=== PATIENT | female | born 1980 | race Caucasian/White ===

== ENCOUNTER 2024-04-13 10:36 | Outpatient (AMB) | payer OTHER, SELFPAY ==
--- NOTE | 2024-04-13 11:13 | MHC.OFFVIS ---
Vital Signs 04/13/24 11:14 Height 5 ft 3 in Weight 185 lb 2 oz BMI 32.8 BP 126/66 Blood Pressure Location Lt brachial Position Sitting Pulse 88 Intake Visit Reasons: Colon rectal prolapse Intake Note: This patient presents for rectal prolapse. Pt c/o; Onset 2021, she reports this has been an issue since she had her daughter in 2021, she had childbirth but turned into emergency , reports rectal bleeding and mucus after a bowel movement, reports pressure sensation, reports she went to [facility] emergency department for Right upper quadrant pain; normal findings. Artificial Intelligence Specialist Required: No Accompanied by: Self / Same As Patient Allergies ketorolac [From Toradol] Allergy (Severe, Verified 04/13/24 11:18) Anaphylaxis metoclopramide [From Reglan] Allergy (Severe, Verified 04/13/24 11:18) Jumpy morphine Allergy (Severe, Verified 04/13/24 11:18) Anaphylaxis Medication List - Last Reconciled 04/13/24 by Anish Ribeiro MD clindamycin phosphate 1% 1 appl topical BID cyclobenzaprine 10 mg PO BID hydrocodone-acetaminophen 5-325 mg 1 tab PO BID PRN ibuprofen 800 mg PO Q8H -lzjr fum-folic ac-om3 28 mg iron- 800 mcg (One A Day Women's DHA) pkgs PO HPI HPI Colon rectal prolapse: Details: 44-year-old female here for hemorrhoid issues. She describes having hemorrhoids since she had her about 3 years ago. She says that at that time, her hemorrhoids were prolapse and she would pushes back in. She did not have severe problems with this then. However, for the past few months, she says that her hemorrhoids have been prolapsing more frequently and she has to push this back herself. She says that this would swell up and cause significant pain and bleeding. She denies being significant constipated. She denies having spontaneous vaginal delivery. [facility] Medical History (Updated 04/13/24 @ 11:20 by Anish Ribeiro MD) Hemorrhoids that prolapse with straining and require manual replacement back inside anal canal Endometriosis Surgical History H/O section Family History Maternal Grandmother CVA (cerebral vascular accident) Paternal Grandmother Colon cancer Paternal Grandfather Myocardial infarction Maternal Grandfather Heart valve replaced Social History Household Members: Spouse and Children Alcohol intake: never Patient Tobacco Use Status: Current someday Tobacco user Tobacco use type: Cigarette Years Smoked: 24 Use of substances other than those prescribed or required for medical reasons: No Review of Systems Const Denies chills and Denies fever(s) Card Denies chest pain, Denies dyspnea and Denies dyspnea on exertion Resp Denies cough, Denies dyspnea and Denies dyspnea on exertion GI Reports hematochezia and Denies change in bowel habits Denies hematuria Musc Denies back pain and Denies limited range of motion Neuro Denies focal weakness and Denies convulsions Psych Denies depression and Denies mood swings Physical Exam Vital Signs: Last Vital Signs Pulse 88 04/13/24 11:14 BP 126/66 04/13/24 11:14 BMI result Body Mass Index 32.8 Const General: comfortable and no acute distress Orientation/consciousness: patient oriented x3 Neck Neck: Yes no lymphadenopathy Resp Auscultation: clear to auscultation bilaterally Cardio Rhythm: regular rhythm GI Other: Rectal exam shows hemorrhoids on both the left and right side Palpation (GI): Soft to palpation, nontender and no guarding Neuro General: patient oriented x3 Office Procedures Anoscopy She was in brit-knife position. The anoscope was gently inserted. A full examination of the entire anal canal was done. She did have mixed internal external hemorrhoids, moderate sites on both the left right side. There were no other lesions. There was no fissure ulceration. She had good sphincter tone. There was no bleeding [id number] Assessment & Plan Assessment & Plan (1) Hemorrhoids that prolapse with straining and require manual replacement back inside anal canal: Code(s): K64.2 - Third degree hemorrhoids Category: Medical Plan: She describes significant discomfort with her hemorrhoids that prolapse frequently. She says she has frequent swelling and pain with this as well. She describes occasional bleeding seen with wiping Examination does show internal and external hemorrhoids, moderately sized. I therefore explained to her the option of proceeding with hemorrhoidectomy. I explained the technique of this procedure. I reviewed the risks including but not limited to bleeding, infections, postop pain, as well as the benefits and alternatives. I described to her what to expect postoperatively She understands and wants to proceed. Coding Level of Care Code New Pt Level 3 (42422) Diagnoses Hemorrhoids that prolapse with straining and require manual replacement back inside anal canal K64.2 CPT Codes Details - CPT: 31423-Lplnplpy ([id number])
[2024-04-13 11:14] VITALS: BP 126/66; PULSE 88; BMI 32.8
--- OUTSIDE RECORDS SUMMARY | 2024-04-13 12:41 | XMS_ITS | Data Portability ---
Author Organization [facility] Address [address] [place] [address] Care Team Providers Care Director Of Quality Improvement Name Role Phone DANA KAREN Referring Provider Assessment Encounter Date Assessment Date Assessment LastModified by Organization Details LastModified Time 10/25/2023 10/25/2023 Reviewed history. Unusual to have recurrent endometriosis. Discussed strategy for preventing symptoms and potential recurrence, deferred due to patient's desire for fertility. Discussed medical management, concerned about narcotic use. Emphasised primary ibuprofen and acetaminophen use, and strict limitation with hydrocodone. Patient states current prescription usually cover 2 cycles. Continue PNV. Return 6 months for annual, sooner if positive test. Reviewing patient? s previous provider about the patient? s condition: 3 minutes Reviewing the patient? s history: 10 minutes Examining the patient: 1 minute Discussing the clinical scenario and treatment options with the patient: 8 minutes Writing prescriptions for the patient: 2 minutes Updating the patient? s record: 10 minutes [email or web address] Not available 10/28/2023 15:26:37 Plan of Treatment Reminders Order Date Submit Date Provider Last Modified By Organization Details Last Modified Time Details Appointments Return [facility] 2025 09:00A M Venancio Zaragoza MD Not available Not available Not available Lab None recorded. Referral None recorded. Procedures None recorded. Surgeries None recorded. Imaging None recorded. Medication Orders ibuprofen 800 mg tablet 2023 024 [facility], [address] [place], [address], 10/28/2023 15:09:54 acetamino phen 500 mg tablet 2023 024 [facility], [address] [place], [address], 10/28/2023 15:09:53 hydrocodo ne 5 mg-acetam inophen 325 mg tablet 2023 [facility], [address] [place], [address], 10/28/2023 15:09:55 ondansetr on HCl 4 mg tablet 2023 [facility], [address] [place], [address], 10/28/2023 15:09:54 Patient TargetsNo targets recorded. Patient Instructions Encounter Date Encounter Id Patient Instructions Last Modified By Organization Details Last Modified Time 10/25/2023 [id number] chronic pelvic pain: care instructions [email or web address] Not available 10/28/2023 15:09:50 body mass index: care instructions wbrazer Not available 10/28/2023 15:09:49 learning about healthy weight wbrazer Not available 10/28/2023 15:09:49 Reason for Referral None Reported. Procedures Surgical History Date Name Laterality Status Provider Name and Address Organization Details Recorded Time Dilation and Curettage completed [facility] 10/25/2023 14:16:14 Endometrial Ablation completed [facility] 10/25/2023 14:16:14 Gallbladder Surgery completed [facility] 10/25/2023 14:16:14 appendectomy completed [facility] 10/25/2023 14:16:14 Section completed [facility] 10/25/2023 14:16:14 Imaging Results None recorded. Procedure Notes None recorded. Medical Equipment None Reported. Allergies Allergen ID Allergen Name Allergen Category Reaction Reaction Severity Criticality Documentation Date Start Date Code Code System Note Provider Name and Address Organization Details Recorded Time 357837 morphine medicatio n anaphylax is Not available Not available 10/25/2023 7052 RxNorm [facility] 14:16:13 943155 POLL[facility] [employer] environme nt,medica tion other Not available Not available 10/25/2023 74670 6 RxNorm Taina ewing [facility] 4 14:16:13 Medications Name Sig Start Date Stop Date Status Note LastModified by Organization Details LastModified Time cyclobenzap rine 10 mg tablet TAKE 1 TABLET BY MOUTH TWICE DAILY FOR 90 DAY(S) NEEDED active Not Available Not Available No t Available ibuprofen 800 mg tablet TAKE 1 TABLET BY MOUTH FOUR TIMES A DAY NEEDED FOR MENSTRUAL PAIN active Not Available Not Available No t Available hydrocodone 5 mg-acetamin ophen 325 mg tablet TAKE 1 TABLET EVERY 4 HOURS BY ORAL ROUTE NEEDED FOR 30 DAYS, FOR MENSTRUAL PAIN. active Not Available Not Available No t Available ondansetron HCl 4 mg tablet TAKE 1 TABLET BY MOUTH 4 TIMES A DAY NEEDED FOR MENSTRUAL SYMPTOMS active Not Available Not Available No t Available acetaminoph en 500 mg tablet TAKE 1 TABLET BY MOUTH EVERY 6 HOURS FOR MENSTRUAL PAIN active Not Available Not Available No t Available oxycodone-a cetaminophe n 5 mg-325 mg tablet TAKE 1 TABLET BY MOUTH EVERY EVENING FOR 8 DAYS. 04/08 completed Not Available Not Available Not Available clindamycin 1 % topical gel APPLY 1 GRAMS PER 100 CENTIM TOP 2X / DAY FOR 10 DAY(S) active Not Available Not Available No t Available diclofenac sodium 50 mg tablet,kia yed release TAKE 1 TABLET BY MOUTH TWICE A DAY 04/08 completed Not Available Not Available Not Available ondansetron 4 mg disintegrat ing tablet active Not Available Not Available N ot Available oxycodone 5 mg tablet TAKE 1 TABLET BY MOUTH EVERY 6 HOURS NEEDED FOR BREAKTHRO UGH PAIN FOR UP TO 3 DAYS 10/20 completed Not Available Not Available Not Available Vitals Date Recorded Body height Body mass index (BMI) Body weight Systolic blood pressure Diastolic blood pressure Provider Name and Address Organization Details Last Updated DateTime 10/25/2023 157.48 cm 32.6 kg/m2 94402.24 g 149 mm[Hg] 90 mm[Hg] Taina Blandon [facility] 4 14:21:25 Date Recorded Body height Body mass index (BMI) Body weight Systolic blood pressure Diastolic blood pressure Provider Name and Address Organization Details Last Updated DateTime 04/12/2024 157.48 cm 33.5 kg/m2 97688.5 g 132 mm[Hg] 86 mm[Hg] [facility] 14:41:03 Social History Question Answer Notes LastModified by Organizat ion Details LastModified Time Tobacco Smoking Status Current Some Day Smoker [facility] 10/25/2023 14:16:14 Do You Have An Advance Directive? Yes Information not available 10/25/2023 Are You Blind Or Do You Have Difficulty Seeing? No Information not available 10/25/2023 Is Blood Transfusion Acceptable In An Emergency? Yes Information not available 10/25/2023 What Is Your Level Of Caffeine Consumption? Occasional Information not available 10/25/2023 Are You Currently Employed? No Information not available 04/12/2024 Are You Deaf Or Do You Have Serious Difficulty Hearing? No Information not available 10/25/2023 What Type Of Diet Are You Following? 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 Right Information not available 10/25/2023 What Was The Date Of Your Most Recent Tobacco Screening? 10/25/2023 Information not available 10/25/2023 Do You Have Any Pets? Yes Information not available 10/25/2023 What Is Your Relationship Status? Information not available 10/25/2023 Do You Feel Stressed (tense, Restless, Nervous, Or Anxious, Or Unable To Sleep At Night)? [id number] Information not available 10/25/2023 Do You Use Any Illicit Or Recreational Drugs? No Information not available 10/25/2023 Has Tobacco Cessation Counseling Been Provided? Yes Information not available 10/25/2023 On What Date Was Tobacco Cessation Counseling Provided? 10/25/2023 Information not available 10/25/2023 How Many Years Have You Smoked Tobacco? 21 Information not available 10/25/2023 Do You Or Have You Ever Used Any Other Forms Of Tobacco Or Nicotine? No Information not available 10/25/2023 Sex: Unknown Functional Status Question Answer Note LastModified by Organization D etails LastModified Time Are you able to care for yourself? Yes Information not available 10/25/2023 What is your exercise level? Moderate Information not available 10/25/2023 Mental Status None recorded. Family History Relationship Description Onset Age of this Age Resolved Age Notes LastModified by Organization Details LastModified Time Paternal Grandmother Malignant tumor of colon Not available 2023 14:16:13 Mother Migraine Not availabl e 10/25/2023 14:16:13 Maternal Grandmother Family history of stroke Not available 2023 14:16:13 Paternal Grandfather Myocardial infarction Not available 10/24 14:16:13 Medical History Condition Response Endometriosis Y Anxiety Y Gynecological History Statement/Question Response Total # of Births 1 Number of Pregnancies? 2 Date of LMP 03/25/2024 History of Abnormal Pap Smear? N Number of Abortions 0 Date of last pap 04/08/2023 Current Control Method Seeking Pre gnancy Number of Miscarriages? 1 Obstetrics History GPAL:G 0 P 0 0 0 0 Past Encounters Encounter ID Performer Location Encounter Start Date Encounter Closed Date Diagnosis/Indication Diagnosis SNOMED-CT Code Diagnosis ICD10 Code Diagnosis Note [id number] Venancio Zaragoza MD [facility] [address] [place] [address] 10/25/2023 13:53:47 10/25/2023 15:16:27 History of endometriosis 0649901774 4061748 Z87.42 Chronic pe lvic pain of female 004808920 R10.2 Body mass index 30+ - obesity 538138359 Z68.32 [id number] Kailee Voracod [facility] [address] [place] [address] 04/12/2024 14:02:14 04/12/2024 15:15:39 Routine gynecologic examination done 6033204527 9101 Z01.419 Screening for malignant neoplasm of breast 500872100 Z12.39 Health Concerns Section Related Observation LastModified by Organization Detai ls LastModified Time None Recorded Concern Status LastModified by Organization Details LastModified Time None Recorded Advance Directives Directive Y: Payers Encounter Date Sequence Insurance Name Policy Number Policy Gaston Covered Member ID Gaston Member ID Guarantor Name 10/25/2023 1 [facility] [id number] Laura Davidson [id number] Laura Davidson Notes Date Note Type Note Provider Name and Address Organization Details Recorded Time 10/25/2023 text/html New patient presents for discussion of endometriosis and medical management. Followed by Dr Vasquez for 20 years. Per patient has had 5 laparoscopic surgeries for endometriosis. 1st surgery 2001 Usually by several years, initially symptoms improved but over time returned. Per patient new endometriosis noted and burned or removed. Most recent surgery operative laparoscopy with D&C. Multiple spots of clear and white endometriosis noted and cauterized. D&C curettings noted inactive endometrium with chronic endometritis.Patien t used depo provera through 2022, stopped due to desire for fertility. Menses overall normal, regular, but painful. 10 days of bleeding. Menses: > > > 09/23. Uses motrin throughout, supplemented with acetaminophen-hydro codone and ondansetron. Would consider hysterectomy in future after fertility.Also experiences painful bowel movements.Medical history also includes fibromyalgia and spine issues due to 2 bulging disks. Was involved in pain clinic previously, but discontinued, felt was ineffective. Venancio Zaragoza MD [address] [place] [address], [phone], [facility] 10/28/2023 15:26:51 OBGyn Episode No OBEpisode recorded.
--- OUTSIDE RECORDS SUMMARY | 2024-04-13 12:41 | XMS_ITS | Data Portability ---
Author Organization [facility] Address [address] [place] [address] Care Team Providers Care Blanking Press Operator Name Role Phone ANNE ATKINS Referring Provider Assessment Encounter Date Assessment Date Assessment LastModified by Organization Details LastModified Time 01/05/2017 01/05/2017 Custom Device: Is a custom device needed for this patient? NO Reasons for Custom Device: Explain Reasoning: The patient will be seen on an as needed basis. Orthosis: is in stock and delivered today. Device delivered: Prefab, OTS If Prefab, Custom Fit, explain modifications - what was done and why: If Custom device, state reasons and provide narrative: Explain Reasoning: Orthotic Goals: Choose all that apply Provide Support Reduce Pain Improve Stability Promote Healing Other (please specify): melissa Not available 01/05/2017 14:03:17 Plan of Treatment Reminders Order Date Submit Date Provider Last Modified By Organization Details Last Modified Time Details Appointments None record ed. Lab None record ed. Referral None record ed. Procedures None record ed. Surgeries None record ed. Imaging None record ed. Medication Orders None record ed. Patient TargetsNo targets recorded. Patient Instructions Encounter Date Encounter Id Patient Instructions Last Modified By Organization Details Last Modified Time 01/05/2017 [id number] Device provided has good fit and function. Patient {{agrees* does not agree}} with my assessment. Patient {{does* does not}} understand wear and care of device. Patient {{does* does not}} understand how to don and doff the device. Patient {{received* did not receive}} written instructions. Patient {{was* was not}} provided with my business card and agrees to call if any problems. [email or web address] Not available 01/05/2017 14:01:25 Reason for Referral None Reported. Procedures Surgical History Date Name Laterality Status Provider Name and Address Organization Details Recorded Time 7 BI Procedures completed Francois Larios [facility] 01/05/2017 14:03:00 Imaging Results None recorded. Procedure Notes None recorded. Medical Equipment None Reported. Vitals None Recorded Social History None recorded. Functional Status None recorded. Mental Status None recorded. Family History Nothing Reported. Medical History No medical history recorded. Gynecological HistoryNo gynecological history recorded. Obstetrics History GPAL:G 0 P 0 0 0 0 Past Encounters Encounter ID Performer Location Encounter Start Date Encounter Closed Date Diagnosis/Indication Diagnosis SNOMED-CT Code Diagnosis ICD10 Code Diagnosis Note [address] [facility] [address] [place] [address] 01/05/2017 11:58:46 01/07/2017 17:38:10 Sprain of left ankle [id number] 6507249 S93.492A Health Concerns Section Related Observation LastModified by Organization Detai ls LastModified Time None Recorded Concern Status LastModified by Organization Details LastModified Time None Recorded Advance Directives Directive None Recorded Payers Encounter Date Sequence Insurance Name Policy Number Policy Gaston Covered Member ID Gaston Member ID Guarantor Name 01/05/2017 1 *SELF PAY* Jenelle Ramirez Notes Date Note Type Note Provider Name and Address Organization Details Recorded Time 01/05/2017 text/html BI HPIReported bypatient.patient is:Out Patient patient accompaniedby Previous Injuryno prior injury Pain?level 4/10 Numbness?none reported Edema?no edema reported Weakness?weakness reported Instability?instabi lity reported Skin Problemsnone reported Diabetic (if lower extremity device)patient reports not diabetic Assistive Devices?wheelchairN otes:Fit patient with a md aso on the left leg Rd ewing [place] [facility] 01/05/2017 14:35:16 OBGyn Episode No OBEpisode recorded.
--- OUTSIDE RECORDS SUMMARY | 2024-04-13 12:42 | XMS_ITS | Clinical Summary ---
Author Organization [facility] Address [address] [place] [address] Care Team Providers Care Pneumatic Hoist Operator Name Role Phone Roxie Richard LJ Primary Care Provider [phone] Allergies Active Allergy Reactions Criticality Noted Date Comments Ivermectin Unknown 09/17/2014 Ketorolac Dyspnea,Hives,Unknow n ,Rash High 03/23/2007 Has used ibuprofen Hives Metoclopramide Anxiety,Other (see comments),Unknown,Nir h Low 06/13/2013 REGLAN(METOCLOPRA MIDE RESIN): Hives Morphine Anaphylaxis High 11/15/2023 Opioids - Morphine Analogues Anaphylaxis,Dyspnea,O ther (see comments),Unknown High 03/23/2007 Trouble breathing, ok on dilaudid Medications ibuprofen (MOTRIN) 800 mg tablet Take 800 mg by mouth 3 times a day. 06/01/2023 Active cyclobenzaprine (FLEXERIL) 10 mg tablet 10 mg 2 times a day as needed for muscle spasms. 06/15/2023 Active no.167-folic acid-dha (One-A-Day ) 400 mcg- 25 mg tablet,chewable Chew and swallow by mouth. Active oxyCODONE-aceta minophen (PERCOCET) 5-325 mg tablet Take 1 tablet by mouth 2 (two) times a day. 11/19/2023 Active diclofenac (VOLTAREN) 50 mg EC tablet Take 1 tablet (50 mg total) by mouth 2 times a day. 60 tablet 1 12/08/2023 Active Active Problems Problem Noted Date Diagnosed Date Foot injury, left, initial encounter 12/08/2023 Closed nondisplaced fracture of medial cuneiform of left foot 12/08/2023 Closed nondisplaced fracture of navicular bone o f left foot 12/08/2023 Closed nondisplaced avulsion fracture of left ta zehra 12/08/2023 Closed nondisplaced fracture of intermediate cuneiform of left foot 12/08/2023 Pain in joint of left shoulder 02/24/2012 Cough 04/21/2011 Nausea (Symptom) 02/13/2011 Ankle sprain Left 10/15/2010 Intermittent asthma 08/14/2010 Lower back pain 08/08/2010 Arthus Reaction 05/16/2010 Chronic pain syndrome 05/15/2010 Chronic mixed headache syndrome 05/15/2010 Endometriosis 05/14/2010 Spina bifida occulta 05/14/2010 Bipolar Disorder 01/15/2009 Anxiety 01/15/2009 Herniated intervertebral disc 01/15/2009 Endocarditis 01/15/2009 Fibromyalgia 01/15/2009 Immunizations Immunization Administration Dates Next Due INFLUENZA, SPLIT VIRUS, TRIVALENT, PF 10/15/2010 Tetanus Toxoid, Reduced Diph theria Toxoid, and Acellular Pertussis Vaccine, Adsorbed 05/14/2010 Social History Tobacco Use Types Packs/Day Years Used Date Smoking Tobacco: Former Cigarettes Tobacco Cessation:Counseling Given: Not Answered Comments:: Comments Unknown Sex and Gender Information Value Date Recorded Sex Assigned at Female 03/04/2023 5:43 PM EST Legal Sex Female 1:28 AM EDT Gender Identity Female 03/04/2023 5:43 PM EST Sexual Orientation Straight 08/09/2023 10 :49 AM EDT Last Filed Vital Signs Vital Sign Reading Time Taken Comments Blood Pressure 119/87 11/15/2023 6:09 PM EDT Pulse 104 11/15/2023 6:09 PM EDT Temperature 36.4 ??C (97.5 ??F) 01/12/2024 2:51 PM ES T Respiratory Rate 16 08/03/2023 8:00 AM EDT Oxygen Saturation 97% 11/15/2023 6:09 PM EDT Inhaled Oxygen Concentration - - Weight 77.1 kg (170 lb) 01/12/2024 2:51 PM EST Height 160 cm (5' 3 ) 01/12/2024 2:51 PM EST Body Mass Index 30.11 01/12/2024 2:51 PM EST Plan of Treatment Health Maintenance Due Date Last Done Comments Cervical Cancer Screening 1982 HIV Screening 1982 HPV and Pap Smear 1982 Pap Smear 1982 Varicella Vaccines (1 of 2 - 13+ 2-dose series) 1995 Hepatitis B Vaccines (1 of 3 - 19+ 3-dose series) 2001 Pneumococcal Vaccine: Pediat elaine (0-5 Years) and At-Risk Patients (6-50 Years) (1 of 2 - PCV) 2001 DTaP,Tdap,and Td Vaccines (2 - Td or Tdap) 05/14/2020 05/14/2010 Mammogram 2022 COVID-19 Vaccine ( season) 2023 Alcohol/Substance Use Screening 02/09/2024 Depression Evaluation 02/09/2024 Social Drivers of Health Kimberlyn ual Screening 02/09/2024 RSV Vaccine (60+ years old a nd patients) (1 - 1-dose 75+ series) 2057 Hepatitis C Screening Completed 03/11/2009 , 01/28/2009, 12/05/2008 Influenza Vaccine Completed 10/28/2023, , 12/23/2007 Procedures * Due to [place] [employer] law, this organization might not be sharing negative HIV tests. Procedure Name Priority Date/Time Associated Diagnosis Comments HEPATITIS C ANTIBODY, CONVERSION Routine 03/11/2009 2:30 PM EST from Last 3 Months or Most Recently Relevant to Health Maintenance Results * Due to [place] [employer] law, this organization might not be sharing negative HIV tests. * HEPATITIS C ANTIBODY, CONVERSION (03/11/2009 2:30 PM EST) Hepatitis C Ab RIBA Negative Negative [facility] Comment: anti-HCV 3.0 Immunoblot Assay (0-4, 0=neg ... 4=strong pos) ? 5-1-1p ? c100p ? c33c ? c22p ? NS5 ? hSOD ? 0 ?0 ?0 ?0 ? 0 INTERPRETATION: ??Negative for HCV antibodies. No antibodies were detected to the HCV proteins. hSOD is a control that detects autoantibodies to human superoxide dismutase. HCV causes the majority of parenterally transmitted non-A, non-B hepatitis. ??Most patients infected with HCV develop antibodies within 3 months of infection. Recent studies show that nearly 90% of HCV infections become chronic. ??If this specimen has a repeatedly reactive EIA result, testing for HCV RNA will determine if the patient is currently infected. An FDA licensed recombinant immunoblot assay was used. TEST INFORMATION: ??Hepatitis C Antibody, RIBA [facility] intends use of this assay for clinical diagnosis. This assay should not be used for blood donor screening, associated re-entry protocols, or for screening Human Cells, Tissues and Cellular and Tissue-Based Products (HCT/P). 03/11/2009 2:30 PM EST 03/11/2009 3:02 PM EST Vivi Soto NP LAB HISTORICAL RESULTS Final Result [facility] [address] [place] [address] from Last 3 Months or Most Recently Relevant to Health Maintenance Insurance [facility] MEDICAID Care Teams Pneumatic Hoist Operator Relationship Specialty Start Date End Date Roxie Richard NP [address] [place] [address] [facility] - General 07/28/23
--- OUTSIDE RECORDS SUMMARY | 2024-04-13 12:42 | XMS_ITS | Referral Summary ---
Author Organization [facility] Address [address] [place] [address] Care Team Providers Care Aquaculture Worker Name Role Phone Vero Richardlacho CALHOUN Primary Care Provider [phone] Allergies Active Allergy Reactions Criticality Noted Date [...] 01/12/2024 2:51 PM EST Plan of Treatment Not on file Procedures * Due to [place] [employer] law, this organization might not be sharing negative HIV tests. Procedure Name Priority Date/Time Associated Diagnosis Comments HEPATITIS C ANTIBODY, CONVERSION Routine 03/11/2009 2:30 PM EST from Last 3 Months or Most Recently Relevant to Health Maintenance Results * Due to [place] [employer] law, this organization might not be sharing negative HIV tests. * HEPATITIS C ANTIBODY, CONVERSION (03/11/2009 2:30 PM EST) Pathologist [facility] Hepatitis C Ab RIBA Negative Negative [facility] Comment: anti-HCV 3.0 Immunoblot Assay (0-4, [...] used. TEST INFORMATION: ??Hepatitis C Antibody, RIBA [facility] intends use of this assay for clinical diagnosis. This assay should not be used for blood donor screening, associated re-entry protocols, or for screening Human Cells, Tissues and Cellular and Tissue-Based Products (HCT/P). 03/11/2009 2:30 PM EST 03/11/2009 3:02 PM EST Vivi Soto [facility] HISTORICAL RESULTS Final Result [facility] [address] [place] [address] from Last 3 Months or Most Recently Relevant to Health Maintenance Insurance [facility] MEDICAID Care Teams Aquaculture Worker Relationship Specialty Start Date End Date Roxie Richard NP [address] [place] [address] PCP - General 07/28/23
== END 2024-04-13 11:50 | disposition home or self-care (01) ==
PROVIDERS: Visit Provider Surgery
DX: K64.2 Third degree hemorrhoids (principal)
CPT/HCPCS: 46600; 99214

== ENCOUNTER → 2024-04-13 10:36 | Outpatient (BNVA) | payer OTHER, SELFPAY | PROVIDERS: Visit Provider Surgery | DX: K64.2 Third degree hemorrhoids (principal) | CPT/HCPCS: 46600; 99212 ==

== ENCOUNTER 2024-05-05 06:54 | Day surgery (SDC) | payer OTHER, SELFPAY ==
--- OUTSIDE RECORDS SUMMARY | 2024-04-18 09:36 | XMS_ITS | Data Portability ---
Author Organization [facility] Address [address] [place] [address] Care Team Providers Care Pathology Collector Name Role Phone KAREN VASQUEZ Referring Provider Assessment Encounter Date Assessment Date [...] 10 minutes wbrazer Not available 10/28/2023 15:26:37 04/12/2024 04/12/2024 Adequate machine shorthand reporter exam. Pap co-testing done. Screening mammogram ordered. Continue ondansetron, acetaminophen, ibuprofen, and hydrocodone-acet aminophen as needed. Again stressed concern about continued narcotic use, appears to be conservative, warned about risk of dependence and abuse. Plan hysterectomy after or sooner if deferred. PNV. Weight loss, diet/exercise. Annual 1 year. wbrazer Not available 04/17/2024 19:50:06 Plan of Treatment Reminders Order Date Submit Date Provider Last Modified By Organization Details Last Modified Time Details Appointments Return COMMUNICATIONS PROJECT MANAGER 2025 09:00A German Zaragoza MD Not available Not available Not available Lab cytology report, thin prep, smear or scraping, cervical or vaginal 2024 025 VANDALIA [facility] ([place]), [address], [place], [address], 04/16/2024 12:05:29 Referral None recorded. Procedures None recorded. Surgeries None recorded. Imaging MAMMO, screening , digital, bilateral 2024 025 [facility], [address], [place], [address], 04/13/2024 08:26:49 Medication Orders ondansetr on HCl 4 mg tablet 2024 025 [facility], [address] [place], [address], 04/17/2024 19:54:24 hydrocodo ne 5 mg-acetam inophen 325 mg tablet 2024 025 [facility], [address] [place], [address], 04/17/2024 19:54:25 acetamino phen 500 mg tablet 2024 025 [facility], [address] [place], [address], 04/17/2024 19:54:23 ibuprofen 800 mg tablet 2024 025 [facility], [address] [place], [address], 04/17/2024 19:54:24 ibuprofen 800 mg tablet 2023 024 [facility], [address] [place], [address], 10/28/2023 15:09:54 acetamino phen 500 mg tablet 2023 024 [facility], [address] [place], [address], 10/28/2023 15:09:53 hydrocodo ne 5 mg-acetam inophen 325 mg tablet 2023 024 [facility], [address] [facility] [place], [address], 10/28/2023 15:09:55 ondansetr on HCl 4 mg tablet 2023 024 [facility], [address] [place], [address], 10/28/2023 15:09:54 Patient TargetsNo targets recorded. Patient Instructions Encounter Date Encounter Id Patient Instructions Last Modified By Organization Details Last Modified Time 10/25/2023 [id number] chronic pelvic pain: care instructions wbrazer Not available 10/28/2023 15:09:50 body mass index: care instructions wbrazer Not available 10/28/2023 15:09:49 learning about healthy weight wbrazer Not available 10/28/2023 15:09:49 04/12/2024 [id number] learning about breast cancer screening wbrazer Not available 04/12/2024 15:08:58 body mass index: care instructions wbrazer Not available 04/17/2024 19:54:21 learning about healthy weight wbrazer Not available 04/17/2024 19:54:21 Reason for Referral None Reported. Results Created Date Observation Date Name Description Value Unit Range Abnormal Flag Note LastModifiedBy Organization Detail LastModifiedTime 04/13/1904/14/2024 IGP, APTIM A HPV, RFX 16/18 ,45 diagnosis: Commen t NEGAT TONY FOR INTRA EPITH ELIAL LESIO N OR SEN [facility]OTT . Not Available [facility] ([facility]) [address], [place], [address], 04/16/2024 12:05:29 04/13/19 25 04/14/2024 IGP, APTIM A HPV, RFX 16/18 ,45 specimen adequacy: Commen t Satis facto ry for evalu ation . Not Available [facility] ([facility]) [address] [place], [address], 04/16/2024 12:05:29 04/13/19 25 04/14/2024 IGP, APTIM A HPV, RFX 16/18 ,45 clinician provided ICD10: Varun hooper Z01.4 19 Not Available [facility] ([facility]) [address] [place], [address], 04/16/2024 12:05:29 04/13/19 25 04/14/2024 IGP, APTIM A HPV, RFX 16/18 ,45 performed by: Vishal Pierson (ASCP ) Not Available [facility] ([facility]) [address] [place], [address], 04/16/2024 12:05:29 04/13/19 25 04/14/2024 IGP, APTIM A HPV, RFX 16/18 ,45 . . Not Available [facility] ([facility]) [address] [place], [address], 04/16/2024 12:05:29 04/13/1904/14/2024 IGP, APTIM A HPV, RFX 16/18 ,45 note: Varun hooper The Pap smear is a scree edilson test desig ryan to aid in the detec tion of carlos ligna nt and malig nant condi tions of the uteri ne cervi x. It is not a diagn ostic proce dure and shoul d not be used as the sole means of detec ting cervi pablo cance r. Both false -posi tive and false -nega tive repor ts do occur . Not Available [facility] ([facility]) [address] [place], [address], 04/16/2024 12:05:29 04/13/19 25 04/14/2024 IGP, APTIM A HPV, RFX 16/18 ,45 test methodology: Varun hooper This liqui d based ThinP rep(R ) pap test was scree ryan with the use of an image guide narinder damico. Not Available [facility] ([facility]) [address] [facility], [place], [address], 04/16/2024 12:05:29 04/13/1904/16/2024 IGP, APTIM A HPV, RFX 16/18 ,45 HPV aptima Negati ve negati ve This nucle ic acid ampli ficat ion test detec ts fourt een high- risk HPV types (16,1 8,31, 33,35 ,39,4 5,51, 52,56 ,58,5 9,66, 68) witho ut diffe renti ation . Not Available [facility] ([facility]) [address] [facility], [place], [address], 04/16/2024 12:05:29 04/13/1904/16/2024 IGP, APTIM A HPV, RFX 16/18 ,45 HPV genotype reflex Commen t Crite whit not met, HPV Genot ype not perfo rmed. Not Available [facility] ([facility]) [address] [facility], [place], [address], 04/16/2024 12:05:29 Result Notes None recorded. Procedures Surgical History Date Name Laterality Status Provider Name and Address Organization Details Recorded Time Dilation and Curettage completed Taina Jamia [facility] 10/25/2023 14:16:14 [facility]25[facility]2023 14:16:14 [facility]/25/2023 14:16:14 [facility]/25/[facility]23 14:16:14 [facility] 14:16:14 Imaging Results None recorded. Procedure Notes None recorded. Medical Equipment None Reported. Allergies Allergen ID Allergen Name Allergen Category Reaction Reaction Severity Criticality Documentation Date Start Date Code Code System Note Provider Name and Address Organization Details Recorded Time 616276 morphine medicatio n anaphylax is Not available Not available 10/25/2023 7052 RxNorm [facility] 4 14:16:13 649104 POLLEN [employer] environme nt,medica tion other Not available Not available 10/25/2023 16972 6 RxNorm [facility] 4 14:16:13 Medications Name Sig Start Date Stop Date Status Note LastModified by Organization Details LastModified Time cyclobenzap rine 10 mg tablet TAKE 1 TABLET BY MOUTH TWICE DAILY FOR 90 DAY(S) NEEDED active Not Available Not Available No t Available ibuprofen 800 mg tablet Take 1 tablet 4 times a day by oral route as needed for 30 days, for menstrual pain. 2024 active Not Available Not Available Not Avai lable hydrocodone 5 mg-acetamin ophen 325 mg tablet Take 1 tablet every 4 hours by oral route as needed for 30 days, for menstrual pain. 2024 active Not Available Not Available Not Avai lable ondansetron HCl 4 mg tablet Take 1 tablet 4 times a day by oral route as needed for 30 days, for menstrual symptoms. 2024 active Not Available Not Available Not Avai lable acetaminoph en 500 mg tablet Take 1 tablet every 6 hours by oral route for 30 days, for menstrual pain. 2024 active Not Available Not Available Not Avai lable oxycodone-a cetaminophe n 5 mg-325 mg tablet [...] Updated DateTime 10/25/2023 157.48 cm 32.6 kg/m2 12737.24 g 149 mm[Hg] 90 mm[Hg] [facility] 14:21:25 Date Recorded Body height Body mass index (BMI) Body weight Systolic blood pressure Diastolic blood pressure Provider Name and Address Organization Details Last Updated DateTime 04/12/2024 157.48 cm 33.5 kg/m2 96347.5 g 132 mm[Hg] 86 mm[Hg] Taina Abreu [facility] 14:41:03 Social History Question Answer Notes LastModified by Organizat ion Details LastModified Time Tobacco Smoking Status Current Some Day Smoker [facility] 10/25/2023 14:16:14 Do You Have An [...] Anxious, Or Unable To Sleep At Night)? [id number] Information not available 10/25/2023 Do You Use [...] available 10/24 14:16:13 Medical History Condition Response Anxiety Y Endometriosis Y Gynecological History Statement/Question Response Total # [...] SNOMED-CT Code Diagnosis ICD10 Code Diagnosis Note [id number] [facility]anc[facility] Zaragoza [facility] [address] [facility] [address] 10/25/2023 13:53:47 10/25/2023 15:16:27 History of endometriosis [id number] 1895541 Z87.42 Chronic pe lvic pain of female 045540809 R10.2 Body mass index 30+ - obesity 776521799 Z68.32 [id number] Venancio Zaragoza MD [facility]G YN [address] [facility] [address] 04/12/2024 14:02:14 04/12/2024 15:15:39 Routine gynecologic examination done [id number] 9101 Z01.419 Screening for malignant neoplasm of breast 884830687 Z12.39 Chronic pe lvic pain of female 079105014 R10.2 Body mass index 30+ - obesity 821001646 Z68.33 Health Concerns Section Related Observation LastModified by Organization Detai ls LastModified Time None Recorded Concern Status LastModified by Organization Details LastModified Time None Recorded Advance Directives Directive Y: Payers Encounter Date Sequence Insurance Name Policy Number Policy Gaston Covered Member ID Gaston Member ID Guarantor Name 10/25/2023 1 [facility] [id number] Laura A Stuart [id number] Laura Stuart 04/12/2024 1 [facility] [id number] Laura A Stuart [id number] Laura Stuart Notes Date Note Type Note Provider Name [...] discontinued, felt was ineffective. Venancio Zaragoza MD [address] [place], [address], [facility] 10/28/2023 15:26:51 04/12/2024 text/html Patient presents for annual exam. Recently broke foot stepping off step. And experiencing rectal prolapse, seeing colorectal surgeon. Otherwise denies recent change in PMHx, FHx. Menses regular, still experiencing menstrual pain secondary to endometriosis, continues regimen of ondansetron, acetaminophen, ibuprofen, and hydrocodone-acetami nophen as needed. Still desires , patient and spouse discussing possibility later this year. Due for screening mammogram. Venancio Zaragoza MD [address] [place], [address], [facility] 04/17/2024 19:54:39 OBGyn Episode No OBEpisode recorded.
--- OUTSIDE RECORDS SUMMARY | 2024-04-18 09:36 | XMS_ITS | Continuity of Care Document ---
Author Organization [facility] MILLIE Gamez_OB/MERCURY CELL CLEANER Address [address] [place] [address] Care Team Providers Care Trim Installer Name Role Phone KAREN CORTEZ Referring Provider [phone] Assessment Encounter Date Assessment Date Assessment LastModified by Organization Details LastModified Time 04/12/2024 04/12/2024 Adequate coring machine operator exam. Pap co-testing done. Screening mammogram ordered. Continue ondansetron, acetaminophen, ibuprofen, and hydrocodone-andrea taminophen as needed. Again stressed concern about continued narcotic use, appears to be conservative, warned about risk of dependence and abuse. Plan hysterectomy after or sooner if deferred. PNV. Weight loss, diet/exercise. Annual 1 year. wbrazer Not available 04/17/2024 19:50:06 Plan of Treatment Reminders Order Date Submit Date Provider Last Modified By Organization Details Last Modified Time Details Appointments Return MERCURY CELL CLEANER 2025 09:00A German Zaragoza MD Not available Not available Not available Lab cytology report, thin prep, smear or scraping, cervical or vaginal 2024 025 [facility] ([facility], [address] [place] [address], [place], [address], 04/16/2024 12:05:29 Referral None recorded. Procedures None recorded. Surgeries None recorded. Imaging MAMMO, screening , digital, bilateral 2024 025 [facility], [address] [place] [address], [place], [address], 04/13/2024 08:26:49 Medication Orders ondansetr on HCl 4 mg tablet 2024 025 [facility], [address] [place], [address], 04/17/2024 19:54:24 hydrocodo ne 5 mg-acetam inophen 325 mg tablet 2024 025 [facility], [address] [place], [address], 04/17/2024 19:54:25 acetamino phen 500 mg tablet 2024 025 [facility], [address] [place], [address], 04/17/2024 19:54:23 ibuprofen 800 mg tablet 2024 025 [facility], [address] [place], [address], 04/17/2024 19:54:24 Patient TargetsNo targets recorded. Patient Instructions Encounter Date Encounter Id Patient Instructions Last Modified By Organization Details Last Modified Time 04/12/2024 [id number] learning about breast cancer screening wbrazer Not available 04/12/2024 15:08:58 body mass index: care instructions wbrazer Not available 04/17/2024 19:54:21 learning about healthy weight wbrazer Not available 04/17/2024 19:54:21 Reason for Referral None Reported. Procedures Surgical History Date Name Laterality Status Provider Name and Address Organization Details Recorded Time Dilation and Curettage [facility] 10/25/2023 14:16:14 Endometrial Ablation completed [facility] Blandon [facility] 10/25/2023 14:16:14 Gallbladder Surgery completed Taina Blandon MA [facility] 10/25/2023 14:16:14 appendectomy completed Taina Blandon MA [facility] 10/25/2023 14:16:14 Section completed Tainaeri Blandon MA [facility] 10/25/2023 14:16:14 Imaging Results None recorded. Procedure Notes None recorded. Medical Equipment None Reported. Allergies Allergen ID Allergen Name Allergen Category Reaction Reaction Severity Criticality Documentation Date Start Date Code Code System Note Provider Name and Address Organization Details Recorded Time 695996 morphine medicatio n anaphylax is Not available Not available 10/25/2023 7052 [facility] 4 14:16:13 306146 [employer] environme nt,medica tion other Not available Not available 10/25/2023 52735 6 [facility]Norm [facility] 4 14:16:13 [...] Updated DateTime 04/12/2024 157.48 cm 33.5 kg/m2 57099.5 g 132 mm[Hg] 86 mm[Hg] Taina Morales [...] Anxious, Or Unable To Sleep At Night)? [id number] Information not available 10/25/2023 Do You Use [...] SNOMED-CT Code Diagnosis ICD10 Code Diagnosis Note [id number] Venancio Zaragoza MD MWPS_OB/G YN [address] [facility] [place] [address] 04/12/2024 14:02:14 04/12/2024 15:15:39 Routine gynecologic examination done 5769660809 9101 Z01.419 Screening for malignant neoplasm of breast 832825657 Z12.39 Chronic pe lvic pain of female 364509983 R10.2 Body mass index 30+ - obesity 628721934 Z68.33 Health Concerns Section Related Observation LastModified by Organization Detai ls LastModified Time None Recorded Concern Status LastModified by Organization Details LastModified Time None Recorded Payers Encounter Date Sequence Insurance Name Policy Number Policy Gaston Covered Member ID Gaston Member ID Guarantor Name 04/12/2024 1 [facility] [id number] Laura Davidson [id number] Laura Davidson Notes Date Note Type Note Provider Name and Address Organization Details Recorded Time 04/12/2024 text/html Patient presents for annual exam. Recently broke foot stepping off step. And experiencing rectal prolapse, seeing colorectal surgeon. Otherwise denies recent change in PMHx, FHx. Menses regular, still experiencing menstrual pain secondary to endometriosis, continues regimen of ondansetron, acetaminophen, ibuprofen, and hydrocodone-acetam inophen as needed. Still desires , patient and spouse discussing possibility later this year. Due for screening mammogram. Venancio Zaragoza MD [address] [place] [address], [phone], [facility] 04/17/2024 19:54:39 OBGyn Episode No OBEpisode recorded.
--- OUTSIDE RECORDS SUMMARY | 2024-04-18 09:36 | XMS_ITS | Referral Summary ---
Author Organization [facility] Address [address] [place] [address] Care Team Providers Care Cable Armorer Operator Name Role Phone Vero Richardlacho CALHOUN Primary Care Provider Allergies Active Allergy Reactions Criticality Noted Date [...] Not on file Procedures * Due to [place] Comprehensive Care law, this organization might not be sharing negative HIV tests. Procedure Name Priority Date/Time Associated Diagnosis Comments HEPATITIS C ANTIBODY, CONVERSION Routine 03/11/2009 2:30 PM EST from Last 3 Months or Most Recently Relevant to Health Maintenance Results * Due to [place] Comprehensive Care law, this organization might not be sharing negative HIV tests. * HEPATITIS C ANTIBODY, CONVERSION (03/11/2009 2:30 PM EST) Pathologist [facility] Hepatitis C Ab RIBA Negative Negative [facility] Comment: anti-HCV 3.0 Immunoblot Assay (0-4, [...] used. TEST INFORMATION: ??Hepatitis C Antibody, RIBA [facility] intends use of this assay for clinical diagnosis. This assay should not be used for blood donor screening, associated re-entry protocols, or for screening Human Cells, Tissues and Cellular and Tissue-Based Products (HCT/P). 03/11/2009 2:30 PM EST 03/11/2009 3:02 PM EST Vivi Soto PERFORMANCE IMPROVEMENT ANALYST LAB HISTORICAL RESULTS Final Result [facility] [address] [place] [address] from Last 3 Months or Most Recently Relevant to Health Maintenance Insurance [facility] MEDICAID Care Teams Cable Armorer Operator Relationship Specialty Start Date End Date Roxie Richard NP [address] [place] [address] PCP - General 07/28/23
--- OUTSIDE RECORDS SUMMARY | 2024-04-18 09:36 | XMS_ITS | Clinical Summary ---
Author Organization [facility] Address [address] [place] [address] Care Team Providers Care Eyewear Manufacturing Tech Name Role Phone Roxie Richard LJ Primary Care Provider [phone] Allergies Active Allergy Reactions Criticality Noted Date [...] 10/28/2023, , 12/23/2007 Procedures * Due to [place] Visiprise law, this organization might not be sharing negative HIV tests. Procedure Name Priority Date/Time Associated Diagnosis Comments HEPATITIS C ANTIBODY, CONVERSION Routine 03/11/2009 2:30 PM EST from Last 3 Months or Most Recently Relevant to Health Maintenance Results * Due to [place] Visiprise law, this organization might not be sharing [...] Soto NP LAB HISTORICAL RESULTS Final Result [facility] [address] [place] [address] from Last 3 Months or Most Recently Relevant to Health Maintenance Insurance [employer] MEDICA[employer] Care Teams Eyewear Manufacturing Tech Relationship Specialty Start Date End Date Roxie Richard NP [address] [place] [address] [facility] - General 07/28/23
[2024-05-03 12:56] VITALS: BMI 32.8
[2024-05-05] VITALS (13 sets, daily range): BP systolic 98–130; BP diastolic 40–70; PULSE 70–89; RESP 12–20; TEMP 36.1–36.4; O2SAT 96–100; BMI 31.9
[2024-05-05 07:17] LABS: UPreg QC Valid YES; Urine Pregnancy NEGATIVE (NEGATIVE)
[2024-05-05] MEDS: Lactated Ringers 1,000 ML 100 ML IVCONT (07:42)
--- NOTE | 2024-05-05 08:29 | MHC.SHP ---
Pre-Procedural Eval Section A - 24 Hr Update-Section A only Date of Service: 05/05/24 The patient is an INPATIENT: No Changes since office visit: No Cold of Flu in the past 2 weeks, No New Medical Problems, No Changes in Medication and No Patient answered all questions The patient has been examined within 24 hours of the surgical procedure. The History & Physical has been completed within 30 days and I have reviewed it.: Yes Section B - Complete if H&P > 30 days Chief Complaint: Third degree hemorrhoids Allergies: Allergies Allergy/AdvReac Type Severity Reaction Status Date / Time ketorolac [From Toradol] Allergy Severe Anaphylaxis Verified 04/13/24 11:18 metoclopramide [From Reglan] Allergy Severe Jumpy Verified 04/13/24 11:18 morphine Allergy Severe Anaphylaxis Verified 04/13/24 11:18 Plan I have reviewed the history and physical and performed a pertinent physical examination on my patient. No changes have occurred unless specified. Time Spent With Patient Time: Total time managing care of this patient today ____ minutes.
--- NOTE | 2024-05-05 08:39 | HO.ANESPROP2 ---
Documented by User: Jessica Borrero NP 05/03/24 14:26 HPI - Anesthesia Eval Consult details Narrative: 44yo F for EUA,Hemorrhoidectomy PMFSH Active Problems Active Problems: All Active Problems Hemorrhoids that prolapse with straining and require manual replacement back inside anal canal (Acute) Past Medical History Medical History (Updated 05/03/24 @ 13:10 by Amalia Poole RN) Exercise-induced asthma Menstrual pain External hemorrhoids OCD (obsessive compulsive disorder) ADHD (attention deficit hyperactivity disorder) PTSD (post-traumatic stress disorder) Depression Anxiety Hemorrhoids that prolapse with straining and require manual replacement back inside anal canal Endometriosis Family History Family History Maternal Grandmother CVA (cerebral vascular accident) Paternal Grandmother Colon cancer Paternal Grandfather Myocardial infarction Maternal Grandfather Heart valve replaced Surgical History Surgical History (Updated 05/03/24 @ 13:06 by Amalia Poole RN) Hx of laparoscopy Hx of cholecystectomy Hx of appendectomy History of excision of pilonidal cyst H/O section Social History Social History Household Members: Spouse and Children Are you a primary transition of care specialist to a significant other at home: Yes (2 year old, has taken family leave to assist post-op) Do you presently have visiting nurse or other home services: No Alcohol intake: never Patient Tobacco Use Status: Current everyday Tobacco user Tobacco use type: Cigarette Cigarettes Per Day: 3 Years Smoked: 24 Smoked in Last 30 Days: Yes Use of substances other than those prescribed or required for medical reasons: No Have you been hit, kicked, punched, or otherwise hurt by someone within the past year? If so, by whom?: No Are you DNR?: No Advance Directives: No (has one, will try to find and bring dos) Advance Directives Information Provided: Yes Advance Directives on File: No Recently lost weight without trying: No Nutrition Risks: No Nutritional Risk Patient : No FDLMP: 04/21/2024 : No Meds Allergies Allergy/AdvReac Type Severity Reaction Status Date / Time ketorolac [From Toradol] Allergy Severe Anaphylaxis Verified 04/13/24 11:18 metoclopramide [From Reglan] Allergy Severe Jumpy Verified 04/13/24 11:18 morphine Allergy Severe Anaphylaxis Verified 04/13/24 11:18 Home Medications ?Medication ?Instructions ?Recorded ?Confirmed ?Last Taken ?Type clindamycin phosphate 1 % topical 1 appl topical BID 04/10/24 04/13/24 Unknown History gel cyclobenzaprine 10 mg tablet 10 mg PO BID PRN Muscle Spasm 04/10/24 05/03/24 Unknown History hydrocodone 5 mg-acetaminophen 325 1 tab PO BID PRN Menstrual Pain 04/10/24 05/03/24 Unknown History mg tablet ibuprofen 800 mg tablet 800 mg PO Q8H PRN Menstrual Cramps 04/10/24 05/03/24 Unknown History vits 75-iron 28 mg-folic pkg PO DAILY 04/10/24 04/13/24 Unknown History acid 800 mcg-omega-3 oral combo pack (One A Day Women's DHA) acetaminophen 500 mg tablet 500 mg PO Q6H pain 05/03/24 05/03/24 Unknown History albuterol sulfate 90 mcg/actuation 2 puff inhalation Q4-6H PRN 05/03/24 05/03/24 Unknown History aerosol inhaler Shortness Of Breath Or Wheezing ondansetron HCl 4 mg tablet 4 mg PO QID PRN Nausea And Vomiting 05/03/24 05/03/24 Unknown History Exam Height,Weight and Vital Signs: Height 5 ft 3 in Weight 83.915 kg Assessment and Plan Assessment Anesthesia Assessment: Chart Reviewed Documented by User: Negra Galindo DO 05/05/24 08:40 [facility] Past Medical History Medical History (Updated 05/03/24 @ 13:10 by Amalia Poole RN) Exercise-induced asthma Menstrual pain External hemorrhoids OCD (obsessive compulsive disorder) ADHD (attention deficit hyperactivity disorder) PTSD (post-traumatic stress disorder) Depression Anxiety Hemorrhoids that prolapse with straining and require manual replacement back inside anal canal Endometriosis Family History Family History Maternal Grandmother CVA (cerebral vascular accident) Paternal Grandmother Colon cancer Paternal Grandfather Myocardial infarction Maternal Grandfather Heart valve replaced Family history of problems with anesthesia: No Surgical History Surgical History (Updated 05/03/24 @ 13:06 by Amalia Poole RN) Hx of laparoscopy Hx of cholecystectomy Hx of appendectomy History of excision of pilonidal cyst H/O section History of Problems with Anesthesia: No Social History Social History Household Members: Spouse and Children Are you a primary transition of care specialist to a significant other at home: Yes (2 year old, has taken family leave to assist post-op) Do you presently have visiting nurse or other home services: No Alcohol intake: never Patient Tobacco Use Status: Current everyday Tobacco user Tobacco use type: Cigarette Cigarettes Per Day: 3 Years Smoked: 24 Smoked in Last 30 Days: Yes Use of substances other than those prescribed or required for medical reasons: No Have you been hit, kicked, punched, or otherwise hurt by someone within the past year? If so, by whom?: No Are you DNR?: No Advance Directives: No (has one, will try to find and bring dos) Advance Directives Information Provided: Yes Advance Directives on File: No Recently lost weight without trying: No Nutrition Risks: No Nutritional Risk Patient : No FDLMP: 04/21/2024 : No Meds Allergies Allergy/AdvReac Type Severity Reaction Status Date / Time ketorolac [From Toradol] Allergy Severe Anaphylaxis Verified 04/13/24 11:18 metoclopramide [From Reglan] Allergy Severe Jumpy Verified 04/13/24 11:18 morphine Allergy Severe Anaphylaxis Verified 04/13/24 11:18 Home Medications ?Medication ?Instructions ?Recorded ?Confirmed ?Last Taken ?Type clindamycin phosphate 1 % topical 1 appl topical BID 04/10/24 04/13/24 Unknown History gel cyclobenzaprine 10 mg tablet 10 mg PO BID PRN Muscle Spasm 04/10/24 05/03/24 Unknown History hydrocodone 5 mg-acetaminophen 325 1 tab PO BID PRN Menstrual Pain 04/10/24 05/03/24 Unknown History mg tablet ibuprofen 800 mg tablet 800 mg PO Q8H PRN Menstrual Cramps 04/10/24 05/03/24 Unknown History vits 75-iron 28 mg-folic pkg PO DAILY 04/10/24 04/13/24 Unknown History acid 800 mcg-omega-3 oral combo pack (One A Day Women's DHA) acetaminophen 500 mg tablet 500 mg PO Q6H pain 05/03/24 05/03/24 Unknown History albuterol sulfate 90 mcg/actuation 2 puff inhalation Q4-6H PRN 05/03/24 05/03/24 Unknown History aerosol inhaler Shortness Of Breath Or Wheezing ondansetron HCl 4 mg tablet 4 mg PO QID PRN Nausea And Vomiting 05/03/24 05/03/24 Unknown History Exam Exam Date and Time: 05/05/24 0830 Height,Weight and Vital Signs: Height 5 ft 3 in Weight 83.915 kg Height 5 ft 3 in Weight 81.6 kg Vital Signs Temperature 97.6 F 05/05/24 07:33 Pulse Rate 80 05/05/24 07:33 Respiratory Rate 16 05/05/24 07:33 Blood Pressure 108/70 05/05/24 07:33 Pulse Oximetry 96 05/05/24 07:33 Oxygen Delivery Method Room Air 05/05/24 07:33 Temperature 97.6 F 05/05/24 07:33 Pulse Rate 80 05/05/24 07:33 Respiratory Rate 16 05/05/24 07:33 Blood Pressure 108/70 05/05/24 07:33 Pulse Oximetry 96 05/05/24 07:33 Oxygen Delivery Method Room Air 05/05/24 07:33 Airway Mallampati Class: II TM Dist: >3cm Neck ROM: Full Partial: Lower Heart: S1S2 Lungs: CTAB Assessment and Plan Assessment Anesthesia Assessment: Anesthesia Plan Discussed and Chart Reviewed Final Anesthetic Review Family History of Problems with Anesthesia: No History of Problems with Anesthesia: No NPO: Yes ASA Class: II Final Preanesthetic Review: No Changes in Pt Med Stat, Meds/Allgs Chart Reviewed, Consent Obtained/Reviewed and Anes Risks/Benef Reviewed Patient Risk: Low Procedure Risk: Low Anesthetic Plan Anesthetic Plan: GA and Agree w/ Assess. and Plan Disposition: Standard PACU
[2024-05-05] MEDS: cefoTEtan disodium 2 GM VIAL IVPUSH (09:40)
--- NOTE | 2024-05-05 10:22 | P.OP_ITS ---
Operative Note Operative Note Date of Service: 05/05/24 Narrative: Preop diagnosis: Internal external hemorrhoids with prolapse and pain Postop diagnosis: The same Procedure: Exam under anesthesia hemorrhoidectomy x2 columns Surgeon: Anish Ribeiro MD Welder First Class: Edgar Dozier MS 3 The patient is a 44 year old female with a long standing history of pain and prolapse with the hemorrhoids. She wanted to proceed with hemorrhoidectomy. She understood the technique of the planned procedure as was the risks, benefits, and alternatives She was brought to the operating room. She was placed in prone brit-knife position under general anesthesia via endotracheal tube. The buttocks were retracted with wide tape laterally. The perianal area was prepped and draped in the usual sterile fashion. A surgical time-out was done. The patient received Cefotan 2 g IV preoperatively Examination of the anal orifice showed large external hemorrhoids on both the left and right side. I inserted the Ursula Ayers retractor and examined the anal canal circumferentially. Again these large hemorrhoidal columns a mix of internal external were seen. No other lesions or any ulcer or fissure I applied a Reyna grasper on the hemorrhoidal column on the left to retract this out into the field. I made a [id number] stitch at the pedicle with a chromic 3-0. I made an incision around this hemorrhoidal column to the perianal skin with a blade 15. I excised this hemorrhoidal column above the plane of the sphincters with scissors. I closed the incision with a running chromic 3-0 stitch. Additional hemostatic sutures were placed for oozing areas I then procedure was duplicated on the large hemorrhoidal column on the right. Again I applied a Reyna grasper to retract this. I made a [id number] stitch at the pedicle. I made an incision around this column to the perianal skin. I excised this hemorrhoidal column above the plane of the sphincters with scissors and closed this with a running chromic 3-0 stitch. Additional sutures were placed for oozing areas. Once hemostasis was confirmed, I infiltrated the perianal area with Marcaine 0.5% for postop analgesia. The procedure was completed. The patient tolerated the procedure well. There were no immediate complications. Initial and final counts of sponges and instruments were correct. Estimated blood loss about 50 cc The patient was extubated without difficulty and transferred to the recovery room with stable vital signs.
[2024-05-05] MEDS: fentaNYL citrate/PF 100 MCG/2 ML VIAL 50 MCG IVPUSH ×2 (10:33→10:43)
[2024-05-05] MEDS: Acetaminophen 1,000 MG/100 ML PIGGYBACK 400 MG IV (10:35)
[2024-05-05] MEDS: oxyCODONE HCl Immed Release 5 MG TABLET PO (10:35)
[2024-05-05] MEDS: HYDROmorphone HCl 0.5 MG/0.5 ML SYRINGE IVPUSH ×2 (10:50→11:10)
[2024-05-05] MEDS: Haloperidol Lactate 5 MG/ML VIAL 1 MG IVPUSH (11:15)
== END 2024-05-05 12:40 | disposition home or self-care (01) ==
PROVIDERS: Nurse Practitioner; PCP Nurse Practitioner Family; Visit Provider Surgery
PROC: (CPT 46260; principal; 2024-05-05 09:30)
DX: K64.2 Third degree hemorrhoids (principal); K64.4 Residual hemorrhoidal skin tags; K62.3 Rectal prolapse; N80.9 Endometriosis, unspecified; F32.A Depression, unspecified; F41.9 Anxiety disorder, unspecified; Z79.1 Long term (current) use of non-steroidal anti-inflammatories (NSAID); Z79.899 Other long term (current) drug therapy; Z88.5 Allergy status to narcotic agent; Z88.8 Allergy status to other drugs, medicaments and biological substances; Z90.49 Acquired absence of other specified parts of digestive tract; F17.210 Nicotine dependence, cigarettes, uncomplicated
CPT/HCPCS: 46260; 81025; 88304; J0131; J0330; J1100; J1171; J1630; J2003; J2250; J2405; J2704; J2795; J3010

== ENCOUNTER → 2024-05-05 06:54 | Outpatient (BNV) | payer OTHER, SELFPAY | PROVIDERS: PCP Nurse Practitioner Family; Visit Provider Surgery | DX: K64.8 Other hemorrhoids (principal) | CPT/HCPCS: 46260 ==

== ENCOUNTER 2024-05-18 11:04 | Outpatient (AMB) | payer OTHER, SELFPAY ==
--- NOTE | 2024-05-18 11:14 | MHC.OFFVIS ---
Vital Signs 05/18/24 11:22 Weight 182 lb BP 125/59 L Blood Pressure Location Rt brachial Position Sitting Pulse 104 H Intake Visit Reasons: S/P hemorrhoidectomy Intake Note: Patient here s/p hemorrhoidectomy x2 columns on 05-05-2024. Patient c/o: slow healing, pain. Reports soft stools. Taking colace QD. Rx pain meds as needed. Herb Doctor Required: No Accompanied by: Dalton spouse Allergies ketorolac [From Toradol] Allergy (Severe, Verified 05/18/24 11:21) Anaphylaxis metoclopramide [From Reglan] Allergy (Severe, Verified 05/18/24 11:21) Jumpy morphine Allergy (Severe, Verified 05/18/24 11:21) Anaphylaxis HPI HPI S/P hemorrhoidectomy: Details: She underwent hemorrhoidectomy x2 columns last 05/05/2024. She tolerated procedure well. She has been getting additional Percocet prescriptions because of her pain. She is also on another narcotic but she says she has a contract with her OBGYN for this and she is unable to get any additional prescriptions for this. [facility] Medical History (Updated 05/03/24 @ 13:10 by Amalia Poole RN) Exercise-induced asthma Menstrual pain External hemorrhoids OCD (obsessive compulsive disorder) ADHD (attention deficit hyperactivity disorder) PTSD (post-traumatic stress disorder) Depression Anxiety Hemorrhoids that prolapse with straining and require manual replacement back inside anal canal Endometriosis Surgical History (Updated 05/03/24 @ 13:06 by Amalia Poole RN) Hx of laparoscopy Hx of cholecystectomy Hx of appendectomy History of excision of pilonidal cyst H/O section Family History Maternal Grandmother CVA (cerebral vascular accident) Paternal Grandmother Colon cancer Paternal Grandfather Myocardial infarction Maternal Grandfather Heart valve replaced Social History Household Members: Spouse and Children Are you a primary professional healthcare representative to a significant other at home: Yes (2 year old, has taken family leave to assist post-op) Do you presently have visiting nurse or other home services: No Alcohol intake: never Patient Tobacco Use Status: Current everyday Tobacco user Tobacco use type: Cigarette Cigarettes Per Day: 3 Years Smoked: 24 Physical Exam Vital Signs: Last Vital Signs Pulse 104 H 05/18/24 11:22 BP 125/59 L 05/18/24 11:22 Const General: no acute distress Resp Effort & Inspection: normal respiratory effort GI Other: Rectal exam shows hemorrhoidectomy sites to be well healed, not infected, no ecchymosis Assessment & Plan Assessment & Plan (1) Hemorrhoids that prolapse with straining and require manual replacement back inside anal canal: Code(s): K64.2 - Third degree hemorrhoids Category: Medical Plan: Status post hemorrhoidectomy. Her incisions are actually healing well. He does have pain control issues so I have been represcribe her oxycodone periodically. She is to continue doing hot Sitz baths Her path report shows hemorrhoids. She says she still needs refill of her Percocet I did tell her that she can follow up in the office on a p.r.n. basis. Medications: New lidocaine 5% 1 appl topical QID PRN 14.17 grams 0RF pain Refilled oxycodone-acetaminophen 5-325 mg (Percocet) Partial Fill upon patient request. OK FOR PATIENT TO PAY OUT OF POCKET 2 tabs PO Q6H PRN 20 tabs 0RF pain Coding Level of Care Code Global (60953) Diagnoses Hemorrhoids that prolapse with straining and require manual replacement back inside anal canal K64.2
[2024-05-18 11:22] VITALS: BP 125/59; PULSE 104
--- OUTSIDE RECORDS SUMMARY | 2024-05-18 13:21 | XMS_ITS | Clinical Summary ---
Author Organization [facility] Address [address] [place] [address] Care Team Providers Care Dogman/Woman Name Role Phone Roxie Richard LJ Primary Care Provider [phone] Allergies Active Allergy Reactions Criticality Noted Date [...] 05/14/2020 05/14/2010 Mammogram 2022 COVID-19 Vaccine ( - season) 2023 Alcohol/Substance Use Screening 02/09/2024 Depression Screening and Follow-Up 02/09/2024 Social Drivers of Health Kimberlyn ual Screening 02/09/2024 RSV Vaccine (60+ years old a nd patients) (1 - 1-dose 75+ series) 2057 Hepatitis C Screening Completed 03/11/2009 , 01/28/2009, 12/05/2008 Influenza Vaccine Completed 10/28/2023, , 12/23/2007 Procedures * Due to [place] [employer] law, this organization might not be sharing negative HIV tests. Procedure Name Priority Date/Time Associated Diagnosis Comments HEPATITIS C ANTIBODY, CONVERSION Routine 03/11/2009 2:30 PM EST from Last 3 Months or Most Recently Relevant to Health Maintenance Results * Due to [place] [employer] law, this organization might not be sharing [...] Soto NP LAB HISTORICAL RESULTS Final Result [facility] [address] [place] [address] from Last 3 Months or Most Recently Relevant to Health Maintenance Insurance [id number] MEDICAID Care Teams Dogman/Woman Relationship Specialty Start Date End Date Roxie Richard NP [address] [place] [address] [facility] - General 07/28/23
--- OUTSIDE RECORDS SUMMARY | 2024-05-18 13:21 | XMS_ITS | Data Portability ---
Author Organization [facility] Address [address] [place] [address] Care Team Providers Care Clean Rice Broker Name Role Phone KAREN VASQUEZ Referring Provider [phone] Assessment Encounter Date Assessment Date Assessment LastModified [...] Not available 10/28/2023 15:26:37 04/12/2024 04/12/2024 Adequate cytogenetic technologist exam. Pap co-testing done. Screening mammogram ordered. [...] Details Last Modified Time Details Appointments Return [facility] PHILOSOPHY PROFESSOR 2025 09:00A German Zaragoza MD Not available Not available Not available Lab cytology report, thin prep, smear or scraping, cervical or vaginal 2024 025 [place] [facility] ([place]), [address], [place], [address], 04/16/2024 12:05:29 Referral None recorded. Procedures None recorded. Surgeries None recorded. Imaging MAMMO, screening , digital, bilateral 2024 025 [facility], [address], [place], [address], 04/13/2024 08:26:49 Medication Orders ondansetr on HCl 4 mg tablet 2024 025 [facility], [address] [place], [address], 04/17/2024 19:54:24 hydrocodo ne 5 mg-acetam inophen 325 mg tablet 2024 025 [facility], [address] [place], [address], 04/17/2024 19:54:25 acetamino phen 500 mg tablet 2024 025 [facility], [address] [place], [address], 04/17/2024 19:54:23 ibuprofen 800 mg tablet 2024 025 [facility], [address] [place], [address], 04/17/2024 19:54:24 ibuprofen 800 mg tablet 2023 024 [facility], [address] [place], [address], 10/28/2023 15:09:54 acetamino phen 500 mg tablet 2023 024 [facility], [address] [place], [address], 10/28/2023 15:09:53 hydrocodo ne 5 mg-acetam inophen 325 mg tablet 2023 024 [facility], [address] [place], [address], 10/28/2023 15:09:55 ondansetr on HCl 4 mg tablet 2023 024 [facility], [address] [place], [address], 10/28/2023 15:09:54 Patient TargetsNo targets recorded. Patient Instructions Encounter Date Encounter Id Patient Instructions Last Modified By Organization Details Last Modified Time 10/25/2023 [id number] chronic pelvic pain: care instructions wbrazer Not available 10/28/2023 15:09:50 body mass index: care instructions wbrazer Not available 10/28/2023 15:09:49 learning about healthy weight wbrazer Not available 10/28/2023 15:09:49 04/12/2024 [id number] learning about breast cancer screening wbrazer Not [...] OR SEN PRESCOTT . Not Available [facility] ([facility]) [address], [place], [address], 04/16/2024 12:05:29 04/13/19 25 04/14/2024 IGP, APTIM A HPV, RFX 16/18 ,45 specimen adequacy: Commen t Satis facto ry for evalu ation . Not Available [facility] ([facility]) [address] [place], [address], 04/16/2024 12:05:29 04/13/19 25 04/14/2024 IGP, APTIM A HPV, RFX 16/18 ,45 clinician provided ICD10: Varun hooper Z01.4 19 Not Available [facility] ([facility]) [address] [place], [address], 04/16/2024 12:05:29 04/13/19 25 04/14/2024 IGP, APTIM A HPV, RFX 16/18 ,45 performed by: Vishal Pierson (ASCP ) Not Available [facility] ([facility]) [address] [place], [address], 04/16/2024 12:05:29 04/13/19 25 04/14/2024 IGP, APTIM A HPV, RFX 16/18 ,45 . . Not Available [facility] ([facility] [address] [place], [address], 04/16/2024 12:05:29 04/13/1904/14/2024 IGP, APTIM A HPV, [...] ts do occur . Not Available [facility]) [address] [place], [address], 04/16/2024 12:05:29 04/13/19 25 04/14/2024 IGP, APTIM A HPV, RFX 16/18 ,45 test methodology: Varun hooper This liqui d based ThinP rep(R ) pap test was scree ryan with the use of an image guide narinder damico. Not Available [facility] ([facility]) [address], [place], [address], 04/16/2024 12:05:29 04/13/1904/16/2024 IGP, APTIM A HPV, RFX 16/18 ,45 HPV aptima Negati ve negati ve This nucle ic acid ampli ficat ion test detec ts fourt een high- risk HPV types (16,1 8,31, 33,35 ,39,4 5,51, 52,56 ,58,5 9,66, 68) witho ut diffe renti ation . Not Available [facility] ([facility]) [address], [place], [address], 04/16/2024 12:05:29 04/13/1904/16/2024 IGP, APTIM A HPV, RFX 16/18 ,45 HPV genotype reflex Commen t Crite whit not met, HPV Genot ype not perfo rmed. Not Available [facility] ([facility]) [address], [place], [address], 04/16/2024 12:05:29 Result Notes None recorded. Procedures Surgical History Date Name Laterality Status Provider Name and Address Organization Details Recorded Time Dilation and Curettage completed Taina Jamia [facility] 10/25/2023 14:16:14 [facility] 10/25/2023 14:16:14 Gallbladder Surgery [facility] 10/25/2023 14:16:14 [facility] 10/25/2023 14:16:14 [facility] 14:16:14 Imaging Results None recorded. Procedure Notes None recorded. Medical Equipment None Reported. Allergies Allergen ID Allergen Name Allergen Category Reaction Reaction Severity Criticality Documentation Date Start Date Code Code System Note Provider Name and Address Organization Details Recorded Time 140256 morphine medicatio n anaphylax is Not available Not available 10/25/2023 7052 RxNorm [facility] 4 14:16:13 711806 POLLEN [employer] environme nt,medica tion other Not available Not available 10/25/2023 08310 6 RxNorm [facility] 4 14:16:13 Medications Name Sig Start Date Stop Date Status Note LastModified by Organization Details LastModified Time cyclobenzap rine 10 mg tablet TAKE 1 TABLET BY MOUTH TWICE DAILY FOR 90 DAY(S) NEEDED active Not Available Not Available No t Available Retin-A 0.025 % topical cream APPLY PEA SIZED AMOUNT TO FACE AT BEDTIME , START 1-2X PER WEEK THEN INCREASE FREQUENCY TOLERATED active Not Available Not Available No t Available ibuprofen 800 mg tablet TAKE 1 TABLET 4 TIMES A DAY BY ORAL ROUTE NEEDED FOR 30 DAYS, FOR MENSTRUAL PAIN. active Not Available Not Available No t Available hydrocodone 5 mg-acetamin ophen 325 mg tablet TAKE 1 TABLET EVERY 4 HOURS NEEDED FOR MENSTRUAL PAIN (SHOULD LAST 30 DAYS) active Not Available Not Available No t Available minocycline 100 mg capsule TAKE 1 CAPSULE 2 TIMES A DAY WITH WATER AND FOOD TWICE A DAY. DO NOT LIE DOWN 1 HOUR AFTER TAKING. active Not Available Not Available No t Available ondansetron HCl 4 mg tablet TAKE 1 TABLET 4 TIMES A DAY NEEDED (FOR MENSTRUAL SYMPTOMS) SHOULD LAST 30 DAYS active Not Available Not Available No t Available acetaminoph en 500 mg tablet TAKE 1 TABLET EVERY 6 HOURS DIRECTED FOR MENSTRUAL PAIN (SHOULD LAST 30 DAYS) active Not Available Not Available No t [...] Updated DateTime 10/25/2023 157.48 cm 32.6 kg/m2 51768.24 g 149 mm[Hg] 90 mm[Hg] [facility] 14:21:25 Date Recorded Body height Body mass index (BMI) Body weight Systolic blood pressure Diastolic blood pressure Provider Name and Address Organization Details Last Updated DateTime 04/12/2024 157.48 cm 33.5 kg/m2 75996.5 g 132 mm[Hg] 86 mm[Hg] [facility] 14:41:03 Social History Question Answer Notes LastModified by Organizat ion Details LastModified Time Tobacco Smoking Status Current Some Day Smoker [facility] 10/25/2023 14:16:14 Do You Have An [...] Anxious, Or Unable To Sleep At Night)? [id number] Information not available 10/25/2023 Do You Use [...] SNOMED-CT Code Diagnosis ICD10 Code Diagnosis Note [id number] Venancio Zaragoza MD [facility] [address] [facility] [place] [address] 10/25/2023 13:53:47 10/25/2023 15:16:27 History of endometriosis [id number] 4290741 Z87.42 Chronic pe lvic pain of female 233599737 R10.2 Body mass index 30+ - obesity 463817056 Z68.32 [id number] Venancio Zaragoza MD [facility] [address] [facility] [address] [facility] [place] [address] 04/12/2024 14:02:14 04/12/2024 15:15:39 Routine gynecologic examination done 0687134895 9101 Z01.419 Screening for malignant neoplasm of breast 297009688 Z12.39 Chronic pe lvic pain of female 938322961 R10.2 Body mass index 30+ - obesity 381128365 Z68.33 Health Concerns Section Related Observation LastModified by Organization Detai ls LastModified Time None Recorded Concern Status LastModified by Organization Details LastModified Time None Recorded Advance Directives Directive Y: Payers Encounter Date Sequence Insurance Name Policy Number Policy Gaston Covered Member ID Agston Member ID Guarantor Name 10/25/2023 1 [facility] [employer] [facility] [id number] Laura A Stuart [id number] 1 Laura Stuart 04/12/2024 1 [facility] [id number] Laura A Stuart [id number] Laura Stuart Notes Date Note Type [...] and burned or removed. Most recent surgery -2023 operative laparoscopy with D&C. Multiple spots of [...] discontinued, felt was ineffective. Venancio Zaragoza MD [address] [place] [address], [phone], [facility] 10/28/2023 15:26:51 04/12/2024 text/html Patient presents [...] Due for screening mammogram. Venancio Zaragoza MD [address] [place] [address], [phone], [facility] 04/17/2024 19:54:39 OBGyn Episode No OBEpisode recorded.
--- OUTSIDE RECORDS SUMMARY | 2024-05-18 13:21 | XMS_ITS | Data Portability ---
Author Organization [facility] Address [address] [place] [address] Care Team Providers Care Educational Psychology Professor Name Role Phone ANNE ATKINS Referring Provider [...] By Organization Details Last Modified Time 01/05/2017 145720 Device provided has good fit and function. [...] 7 BI Procedures completed Francois Larios [facility] 01/05/2017 14:03:00 Imaging Results [...] SNOMED-CT Code Diagnosis ICD10 Code Diagnosis Note [id number] [facility] [address] [place] [address] 01/05/2017 11:58:46 01/07/2017 17:38:10 Sprain of left ankle [id number] 4843293 S93.492A Health Concerns Section Related Observation LastModified [...] the left leg Rd ewing [place] [facility] [place] [facility] 01/05/2017 14:35:16 OBGyn Episode No OBEpisode recorded.
--- OUTSIDE RECORDS SUMMARY | 2024-05-18 13:21 | XMS_ITS | Referral Summary ---
Author Organization [facility] Address [address] [place] [address] Care Team Providers Care Retail Department Supervisor Name Role Phone Vero Richardlacho CALHOUN Primary Care Provider [phone] Allergies Active Allergy Reactions Criticality Noted Date [...] Not on file Procedures * Due to [employer] law, this organization might not be sharing negative HIV tests. Procedure Name Priority Date/Time Associated Diagnosis Comments HEPATITIS C ANTIBODY, CONVERSION Routine 03/11/2009 2:30 PM EST from Last 3 Months or Most Recently Relevant to Health Maintenance Results * Due to [employer] law, this organization might not be sharing negative HIV tests. * HEPATITIS C ANTIBODY, CONVERSION (03/11/2009 2:30 PM EST) Pathologist [facility] Hepatitis C Ab RIBA Negative Negative [facility] Comment: anti-HCV 3.0 Immunoblot Assay (0-4, [...] used. TEST INFORMATION: ??Hepatitis C Antibody, RIBA [facility] intends use of this assay for clinical diagnosis. This assay should not be used for blood donor screening, associated re-entry protocols, or for screening Human Cells, Tissues and Cellular and Tissue-Based Products (HCT/P). 03/11/2009 2:30 PM EST 03/11/2009 3:02 PM EST Vivi Soto COAL PULVERIZING OPERATOR LAB HISTORICAL RESULTS Final Result [facility] [address] [place] [address] from Last 3 Months or Most Recently Relevant to Health Maintenance Insurance [facility] MEDICAID Care Teams Retail Department Supervisor Relationship Specialty Start Date End Date Roxie Richard NP [address] [place] [address] PCP - General 07/28/23
== END 2024-05-18 11:44 | disposition home or self-care (01) ==
LOC: HO.HGS 11:05
PROVIDERS: Visit Provider Surgery
DX: K64.2 Third degree hemorrhoids (principal)
CPT/HCPCS: 99024

== ENCOUNTER → 2024-05-18 11:04 | Outpatient (BNVA) | payer OTHER, SELFPAY | PROVIDERS: Visit Provider Surgery | DX: Z09 Encounter for follow-up examination after completed treatment for conditions other than malignant neoplasm (principal); Z87.19 Personal history of other diseases of the digestive system; Z98.890 Other specified postprocedural states | CPT/HCPCS: 99212 ==

== ENCOUNTER 2024-06-07 08:32 | Outpatient (AMB) | payer OTHER, SELFPAY ==
--- OUTSIDE RECORDS SUMMARY | 2024-06-07 08:49 | XMS_ITS | Referral Summary ---
Author Organization [facility] Address [address] [place] [address] Care Team Providers Care Home Assessment Nurse Name Role Phone Roxie Richard LJ Primary Care Provider [phone] Encounters Date Type Department Care Team Description 06/04/2024 1:28 PM EDT - 06/04/2024 7:23 PM EDT Emergency [facility] Emergency Department [address] [place] [address] Aramis Crain MD Proctitis (Primary Dx) Discharge Disposition: Home or Self Care (01) from Last 3 Months Allergies Active Allergy Reactions Criticality Noted Date [...] mg by mouth 3 times a day. Active cyclobenzaprine (FLEXERIL) 10 mg tablet 10 mg 2 times a day as needed for muscle spasms. 024 Active no.167-folic acid-dha (One-A-Day ) 400 mcg- 25 mg tablet,chewable Chew and swallow by mouth. Active oxyCODONE-acetami nophen (PERCOCET) 5-325 mg tablet Take 1 tablet by mouth 2 (two) times a day. Active diclofenac (VOLTAREN) 50 mg EC tablet Take 1 tablet (50 mg total) by mouth 2 times a day. 60 tablet 1 Active HYDROcodone-aceta minophen (NORCO) 5-325 mg tablet Take 1 tablet by mouth every 4 hours as needed for pain. Active clindamycin (CLEOCIN T) 1 % gel Apply 1 application. topically to the affected area 2 times a day. Active lidocaine (XYLOCAINE) 5% ointment Apply 6 inches topically to the affected area 4 times a day as needed for pain. Active oxyCODONE IR (ROXICODONE) 5 mg tablet Take 1 tablet (5 mg total) by mouth every 6 hours as needed for breakthrough pain for up to 5 days. Max Daily Amount: 20 mg 12 tablet 2024 Active ondansetron (ZOFRAN ODT) 4 mg disintegrating tablet Dissolve 1 tablet (4 mg total) in the mouth every 8 hours as needed for nausea or vomiting. 12 tablet Active docusate sodium (COLACE) 100 mg capsule Take 1 capsule (100 mg total) by mouth 2 times a day for 14 days. 28 capsule 2024 Active amoxicillin-clavu lanate (AUGMENTIN) 875-125 mg tablet Take 1 tablet (875 mg total) by mouth 2 times a day for 7 days. 14 tablet 2024 Active docusate sodium (COLACE) 100 mg capsule Take 100 mg by mouth 2 times a day. 2024 Discontinued amoxicillin-clavu lanate (AUGMENTIN) 875-125 mg tablet Take 1 tablet (875 mg total) by mouth 2 times a day for 7 days. 14 tablet 2024 Discontinued oxyCODONE IR (ROXICODONE) 5 mg tablet Take 1 tablet (5 mg total) by mouth every 6 hours as needed for breakthrough pain for up to 5 days. Max Daily Amount: 20 mg 12 tablet 025 2024 Discontinued ondansetron (ZOFRAN ODT) 4 mg disintegrating tablet Dissolve 1 tablet (4 mg total) in the mouth every 8 hours as needed for nausea or vomiting. 12 tablet 025 2024 Discontinued docusate sodium (COLACE) 100 mg capsule Take 1 capsule (100 mg total) by mouth 2 times a day for 14 days. 28 capsule 025 2024 Discontinued oxyCODONE IR (ROXICODONE) 5 mg tablet Take 1 tablet (5 mg total) by mouth every 6 hours as needed for breakthrough pain for up to 5 days. Max Daily Amount: 20 mg 12 tablet 025 2024 Discontinued amoxicillin-clavu lanate (AUGMENTIN) 875-125 mg tablet Take 1 tablet (875 mg total) by mouth 2 times a day for 7 days. 14 tablet 025 2024 Discontinued Active Problems Problem Noted Date Diagnosed Date [...] Types Packs/Day Years Used Date Smoking Tobacco: Every Day Cigarettes Tobacco Cessation:Ready to Q uit: Not Asked; Counseling Given: Not Answered Comments:: Alcohol Use Standard Drinks/Week Comments Never 0 (1 standard drink = 0.6 oz pur e alcohol) Comments No Sex and Gender Information Value Date Recorded Sex Assigned at Female 03/04/2023 5:43 PM EST Legal Sex Female 1:28 AM EDT Gender Identity Female 03/04/2023 5:43 PM EST Sexual Orientation Straight 08/09/2023 10 :49 AM EDT Last Filed Vital Signs Vital Sign Reading Time Taken Comments Blood Pressure 127/85 06/04/2024 7:02 PM EDT Pulse 89 06/04/2024 7:02 PM EDT Temperature 36.7 ??C (98 ??F) 06/04/2024 12:45 PM EDT Respiratory Rate 16 06/04/2024 7:02 PM EDT Oxygen Saturation 98% 06/04/2024 7:02 PM EDT Inhaled Oxygen Concentration - - Weight 81.6 kg (180 lb) 06/04/2024 12:45 PM EDT Height 160 cm (5' 3 ) 06/04/2024 12:45 PM EDT Body Mass Index 31.89 06/04/2024 12:45 PM EDT Plan of Treatment Not on file Procedures * Due to [place] state law, this organization might not be sharing negative HIV tests. Procedure Name Priority Date/Time Associated Diagnosis Comments CT ABDOMEN PELVIS W CONTRAST STAT 06/04/2024 5:32 PM EDT MICROSCOPIC URINALYSIS ONLY STAT 06/04/2024 5:02 PM EDT UA/CULTURE REFLEX STAT 06/04/2024 5:0 2 PM EDT URINALYSIS W/REFLEX TO MICROSCOPIC & CULTURE STAT 06/04/2024 5:02 PM EDT LACTIC ACID, PLASMA W/ REPEAT STAT 06/04/2024 4:19 PM EDT LIPASE STAT 06/04/2024 4:04 PM EDT BASIC METABOLIC PANEL STAT 06/04/2024 4:04 PM EDT HEPATIC FUNCTION PANEL STAT 06/04/2024 4:04 PM EDT CBC AUTO DIFFERENTIAL STAT 06/04/2024 4:04 PM EDT RAPID COVID-19, FLU A, FLU B & RSV RNA PCR, SYMPTOMATIC (ED ONLY) STAT 06/04/2024 2:16 PM EDT ECG 12-LEAD Routine 06/04/2024 12:49 PM EDT HEPATITIS C ANTIBODY, CONVERSION Routine 03/11/2009 2:30 PM EST from Last 3 Months or Most Recently Relevant to Health Maintenance Results * Due to [place] state law, this organization might not be sharing negative HIV tests. * CT Abd Pelvis W Contrast (06/04/2024 5:32 PM EDT) Anatomical Region Laterality Modality Body Computed Tomogra phy 06/04/2024 6:09 PM EDT Impressions 06/04/2024 6:15 PM EDT 1. ??Mild wall thickening of the distal rectum and anus which can be seen with proctitis. 2. ??A 2.5 cm left ovarian cyst. If this radiology report contains a blank impression section, it is an incomplete radiology report. ??Please contact the interpreting radiologist or applicable radiology division as soon as possible to obtain the completed interpretation. ? Workstation ID: [id number] Up-to-date CT equipment and radiation dose reduction techniques were employed. CTDIvol: 14.6 mGy. DLP: 654 mGy-cm. Narrative 06/04/2024 6:15 PM EDT EXAMINATION: CT ABDOMEN PELVIS W CONTRAST INDICATION: Abdominal pain. ??Rectal pain. TECHNIQUE: Images of the abdomen and pelvis were obtained with intravenous contrast. Coronal and sagittal reformats were generated. COMPARISON: None available. ?? FINDINGS: LOWER THORAX: A small hiatal hernia is present. HEPATOBILIARY: No focal hepatic lesions. Patent portal and hepatic veins. ??Cholecystectomy clips are present. ??No biliary ductal dilatation. SPLEEN: No splenomegaly. PANCREAS: No focal masses or ductal dilatation. ADRENAL GLANDS: No adrenal nodules. KIDNEYS/URETERS: No hydronephrosis, calculi, or solid mass lesions. GI TRACT: Retained fecal material and gas is noted within the colon. ??The colon is nondistended. ??No dilated loops of small bowel. ??No findings to suggest appendicitis. ??There is wall thickening involving the rectum and anus. ??This can be seen with proctitis. PERITONEUM/RETROPERITONEUM: No ascites or free air. LYMPH NODES: No lymphadenopathy. VESSELS: Unremarkable. PELVIC ORGANS/BLADDER: There is heterogeneous attenuation of the uterus. ??A 2.5 x 1.6 cm left adnexal cyst is present. ??Follicles are noted within the right ovary. ??No significant pelvic free fluid. BONES AND SOFT TISSUES: Unremarkable. Resulting Agency Comment [id number] Procedure Note Anish Chaney MD - 06/04/2024 EXAMINATION: CT ABDOMEN PELVIS W CONTRAST INDICATION: Abdominal pain. Rectal pain. TECHNIQUE: Images of the abdomen and pelvis were obtained with intravenouscontrast. Coronal and sagittal reformats were generated. COMPARISON: None available. FINDINGS: LOWER THORAX: A small hiatal hernia is present. HEPATOBILIARY: No focal hepatic lesions. Patent portal and hepatic veins.Cholecystectomy clips are present. No biliary ductal dilatation. SPLEEN: No splenomegaly. PANCREAS: No focal masses or ductal dilatation. ADRENAL GLANDS: No adrenal nodules. KIDNEYS/URETERS: No hydronephrosis, calculi, or solid mass lesions. GI TRACT: Retained fecal material and gas is noted within the colon. Thecolon is nondistended. No dilated loops of small bowel. No findings tosuggest appendicitis. There is wall thickening involving the rectum andanus. This can be seen with proctitis. PERITONEUM/RETROPERITONEUM: No ascites or free air. LYMPH NODES: No lymphadenopathy. VESSELS: Unremarkable. PELVIC ORGANS/BLADDER: There is heterogeneous attenuation of the uterus.A 2.5 x 1.6 cm left adnexal cyst is present. Follicles are noted withinthe right ovary. No significant pelvic free fluid. BONES AND SOFT TISSUES: Unremarkable. IMPRESSION: 1. Mild wall thickening of the distal rectum and anus which can be seenwith proctitis. 2. A 2.5 cm left ovarian cyst. If this radiology report contains a blank impression section, it is anincomplete radiology report. Please contact the interpreting radiologistor applicable radiology division as soon as possible to obtain thecompleted interpretation. Workstation ID: [id number] Up-to-date CT equipment and radiation dose reduction techniques wereemployed. CTDIvol: 14.6 mGy. DLP: 654 mGy-cm. us Aramis Crain MD IMG CT PROCEDURES Final Result * (ABNORMAL) Microscopic Urinalysis Only (06/04/2024 5:02 PM EDT) RBC, Urine 0-2 None Seen, 0-2 /HPF 06/04/2024 5:57 PM EDT [facility] WBC, Urine 0-2 None Seen, 0-2 /HPF 06/04/2024 5:57 PM EDT [facility] Squamous Epithelial Cells, Urine 0-2 /HPF 06/04/2024 5:57 PM EDT [facility] Bacteria, Urine Small(A) None Seen /HPF 06/04/2024 5:57 PM EDT [facility] Urine Urine specimen collection, clean catch / Unknown Non-Blood Collection / Unknown 06/04/2024 5:02 PM EDT 06/04/2024 5:34 PM EDT us Aramis Crain MD LAB URINE ORDERABLES Final Res ult [facility] [address] [place] [address] [address] [place] [address], [place] [phone] * (ABNORMAL) Urinalysis W/Reflex to Microscopic & Culture (06/04/2024 5:02 PM EDT) Color, Urine Yellow Yellow 06/04/2024 5:34 PM EDT [facility] Clarity, Urine Clear Clear 06/04/2024 5:34 PM EDT [facility] Specific [place], Urine 1.025 1.005 - 1.030 06/04/2024 5:34 PM EDT [facility] pH, Urine 5.5 5.0 - 8.0 06/04/2024 5:34 PM EDT [facility] Protein, Urine Negative Negative mg/dL 06/04/2024 5:34 PM EDT [facility] Glucose, Urine Negative Negative mg/dL 06/04/2024 5:34 PM EDT [facility] Ketones, Urine 80(A) Negative mg/dL 06/04/2024 5:34 PM EDT [facility] Bilirubin, Urine Negative Negative 06/04/2024 5:34 PM EDT [facility] Blood, Urine Trace(A) Negative 06/04/2024 5:34 PM EDT [facility] Nitrite, Urine Negative Negative 06/04/2024 5:34 PM EDT [facility] Urobilinogen, Urine 1.0 0.2 - 1.0 E.U./dL 06/04/2024 5:34 PM EDT [facility] Leukocyte Esterase, Urine Negative Negative 06/04/2024 5:34 PM EDT [facility] Urine Urine specimen collection, clean catch / Unknown Non-Blood Collection / Unknown 06/04/2024 5:02 PM EDT 06/04/2024 5:26 PM EDT Narrative [facility] - 06/04/2024 5:34 PM EDT Some urinalysis results will not meet the criteria for reflex urine culture although certain urine values may be abnormal. ??Additional testing can be ordered by the provider if clinically warranted. us Aramis Crain MD LAB URINE ORDERABLES Final Res ult [facility] [address] [facility] [address] [place] [address], [place] [phone] * Lactic Acid (w/Repeat if >2) (06/04/2024 4:19 PM EDT) Lactic Acid 0.7 0.5 - 2.0 mmol/L 06/04/2024 5:11 PM EDT [facility] Blood Structure of peripheral vein / Unknown Venipuncture / Unknown 06/04/2024 4:19 PM EDT 06/04/2024 4:36 PM EDT us Aramis Crain MD LAB BLOOD ORDERABLES Final Res ult [facility] [address] [place] [address] [address] [place] [address], [place] [phone] * (ABNORMAL) CBC Auto Differential (06/04/2024 4:04 PM EDT) [facility] WBC 6.9 4.8 - 10.8 10*3/uL 06/04/2024 4:08 PM EDT [facility] RBC 4.40 4.20 - 5.40 10*6/uL 06/04/2024 4:08 PM EDT [facility] Hemoglobin 13.7 11.7 - 15.5 g/dL 06/04/2024 4:08 PM EDT [facility] Hematocrit 38.6 35.7 - 45.8 % 06/04/2024 4:08 PM EDT [facility] MCV 87.7 81.0 - 99.0 fL 06/04/2024 4:08 PM EDT [facility] MCH 31.1 26.0 - 34.0 pg 06/04/2024 4:08 PM EDT [facility] MCHC 35.5 31.0 - 36.0 g/dL 06/04/2024 4:08 PM EDT [facility] RDW 12.4 12.0 - 15.0 % 06/04/2024 4:08 PM EDT [facility] RDW Standard Deviation 39.7 36.4 - 46.3 fL 06/04/2024 4:08 PM EDT [facility] Platelets 339 140 - 440 10*3/uL 06/04/2024 4:08 PM EDT [facility] MPV 9.5 9.4 - 12.3 fL 06/04/2024 4:08 PM EDT [facility] Neutrophil % 64.6 50.0 - 75.0 % 06/04/2024 4:08 PM EDT [facility] Immature Grans % 0.3 0.0 - 0.9 % 06/04/2024 4:08 PM EDT [facility] Lymphocyte % 20.4 20.0 - 44.0 % 06/04/2024 4:08 PM EDT [facility] Monocyte % 11.1 0.0 - 14.0 % 06/04/2024 4:08 PM EDT [facility] Eosinophil % 3.2 0.0 - 5.0 % 06/04/2024 4:08 PM EDT [facility] Basophil % 0.4 0.0 - 2.0 % 06/04/2024 4:08 PM EDT [facility] Neutrophil # 4.47 1.80 - 7.70 10*3/uL 06/04/2024 4:08 PM EDT [facility] Immature Grans # <0.03 0.00 - 0.03 10*3/uL 06/04/2024 4:08 PM EDT [facility] Lymphocyte # 1.40 1.00 - 4.75 10*3/uL 06/04/2024 4:08 PM EDT [facility] Monocyte # 0.80(H) 0.00 - 0.60 10*3/uL 06/04/2024 4:08 PM EDT [facility] Eosinophil # 0.20 0.00 - 0.80 10*3/uL 06/04/2024 4:08 PM EDT [facility] Basophil # <0.03 0.00 - 0.20 10*3/uL 06/04/2024 4:08 PM EDT [facility] nRBC % 0.0 0 - 0 /100 WBCs 06/04/2024 4:08 PM EDT [facility] nRBC # <0.01 0.00 - 0.13 10*3/uL 06/04/2024 4:08 PM EDT [facility] Blood Structure of peripheral vein / Unknown Venipuncture / Unknown 06/04/2024 4:04 PM EDT 06/04/2024 4:04 PM EDT us Aramis Crain MD LAB BLOOD ORDERABLES Final Res ult Performing Organization Address [facility] Co de Phone Number [facility] [address] [place] [address], [place] [phone] * Lipase (06/04/2024 4:04 PM EDT) Lipase 27 13 - 60 U/L 06/04/2024 4:19 PM EDT [facility] Blood Structure of peripheral vein / Unknown Venipuncture / Unknown 06/04/2024 4:04 PM EDT 06/04/2024 4:04 PM EDT us Aramis Crain MD LAB BLOOD ORDERABLES Final Res ult Performing Organization Address [facility] de Phone Number [facility] [address] [place] [address], [place] [phone] * Hepatic Function Panel (06/04/2024 4:04 PM EDT) Total Protein 7.2 6.6 - 8.7 g/dL 06/04/2024 4:19 PM EDT [facility] Albumin 4.7 3.5 - 5.0 g/dL 06/04/2024 4:19 PM EDT [facility] Globulin, Total 2.5 2.1 - 4.2 g/dL 06/04/2024 4:19 PM EDT [facility] Bilirubin, Total 0.4 0.2 - 1.2 mg/dL 06/04/2024 4:19 PM EDT [facility] Bilirubin, Direct 0.2 <=0.3 mg/dL 06/04/2024 4:19 PM EDT [facility] Alkaline Phosphatase 94 40 - 129 U/L 06/04/2024 4:19 PM EDT [facility] AST 26 0 - 33 U/L 06/04/2024 4:19 PM EDT [facility] ALT 27 <=33 U/L 06/04/2024 4:19 PM EDT [facility] Bilirubin, Indirect 0.20 <=0.70 mg/dL 06/04/2024 4:19 PM EDT [facility] A/G Ratio 1.9 1.5 - 3.0 06/04/2024 4:19 PM EDT [facility] Blood Structure of peripheral vein / Unknown Venipuncture / Unknown 06/04/2024 4:04 PM EDT 06/04/2024 4:04 PM EDT us Aramis Crain MD LAB BLOOD ORDERABLES Final Res ult [facility] [address] [place] [address] [address] [place] [address], [place] [phone] * (ABNORMAL) BMP - Basic Metabolic Panel (06/04/2024 4:04 PM EDT) NA 139 136 - 145 mmol/L 06/04/2024 4:19 PM EDT [facility] K 3.8 3.5 - 5.1 mmol/L 06/04/2024 4:19 PM EDT [facility] Cl 107 98 - 109 mmol/L 06/04/2024 4:19 PM EDT [facility] CO2 19(L) 22 - 32 mmol/L 06/04/2024 4:19 PM EDT [facility] BUN 21(H) 6 - 20 mg/dL 06/04/2024 4:19 PM EDT [facility] Creatinine 0.55 0.50 - 1.12 mg/dL 06/04/2024 4:19 PM EDT [facility] Glucose 99 60 - 99 mg/dL 06/04/2024 4:19 PM EDT [facility] Calcium 9.1 8.4 - 10.4 mg/dL 06/04/2024 4:19 PM EDT [facility] Anion Gap 17 >=0 06/04/2024 4:19 PM EDT [facility] eGFR >90 >=60 mL/min/1. 73m2 06/04/2024 4:19 PM EDT [facility] Comment:The estimated glomer ular filtration rate (eGFR) is calculated using a new formula developed by the NKF-ASN task force to eliminate race-based correction factors. The new formula uses serum/plasma creatinine, age, and gender to determine eGFR. A value below 60mls/min might indicate kidney disease and will be flagged. For additional information, see Aubrey et al, Am J Kidney Dis. 2021;79(2):268- 288, A Unifying Approach for GFR estimation: Recommendations of the NKF-ASN Task Force on Reassessing the Inclusion of Race in Diagnosing Kidney Disease . Blood Structure of peripheral vein / Unknown Venipuncture / Unknown 06/04/2024 4:04 PM EDT 06/04/2024 4:04 PM EDT us Aramis Crain MD LAB BLOOD ORDERABLES Final Res ult [facility] [address] [place] [address] [address] [place] [address], * Rapid COVID-19, FLU A, FLU B & RSV RNA PCR, Symptomatic (ED ONLY) (06/04/2024 2:16 PM EDT) PCR, SARS CoV-2 RNA Not Detected Not Detected [employer] 06/04/2024 3:33 PM EDT [facility] Flu A RNA PCR Not Detected Not Detected [employer] 06/04/2024 3:33 PM EDT [facility] Flu B RNA PCR Not Detected Not Detected [employer] 06/04/2024 3:33 PM EDT [facility] RSV RNA PCR Not Detected Not Detected [employer] 06/04/2024 3:33 PM EDT [facility] Comment: Limitations: This RSV test is suitable for the pediatric population (less than 19 years of age) only. Performance characteristics have not been established for use with patients older than 19 years of age and immunocompromised patients. Test results must be evaluated in conjuction with other clinical data available to the physician. Swab (Nares) Non-Blood Collection / Unknown 06/04/2024 2:16 PM EDT 06/04/2024 2:53 PM EDT Narrative [facility] - 06/04/2024 3:33 PM EDT Methodology: The [email or web address] GeneXpert CoV-2/Flu/RSV plus assay is For Use Under an Emergency Use Authorization (EUA) Only with [employer]. The CoV-2/Flu/RSV plus assay is a rapid, multiplexed real-time RT-PCR assay intended for the simultaneous qualitative detection and differentiation of RNA from SARS-CoV-2, influenza A, influenza B, and Respiratory Syncytial Virus (RSV) in specimens collected from individuals suspected of a respiratory viral infection, by their healthcare provider. A positive test result for SARS-CoV-2, influenza or RSV indicates that RNA from that virus was detected. A negative test result indicates that RNA virus was not present in the specimen above the limit of detection. Therefore, a negative result does not rule out SARS-CoV-2, influenza or RSV infection and should not be used as the sole basis for treatment or other patient management decisions. [facility] BODY FLUIDS AND STOOLS O RDERABLES Final Result [facility] [address] [address] [place] [address], * ECG 12 lead (06/04/2024 12:49 PM EDT) Ventricular Rate EKG 96 BPM MUSE EKG Atrial Rate 98 BPM MUSE EKG [place] Interval 129 ms MUSE EKG QRS Interval 86 ms MUSE EKG QT Interval 327 ms MUSE EKG QTC Interval 414 ms MUSE EKG P [place] 55 degrees MUSE EKG R [place] 47 degrees MUSE EKG T Wave [place] 51 degrees MUSE EKG 06/04/2024 12:4 9 PM EDT 06/05/2024 9:19 AM EDT Impressions MUSE EKG - 06/05/2024 9:19 AM EDT Sinus rhythm Probable anteroseptal infarct with residual ST elevation V1-V2 Confirmed by Vivi Padilla ([id number]) on 06/05/2024 9:19:07 AM us Palliative Care Coordinator Andrea ZULUAGA ECG ORDERABLES Final Resu lt MUSE EKG * HEPATITIS C ANTIBODY, CONVERSION (03/11/2009 2:30 PM EST) Hepatitis C Ab RIBA Negative Negative [facility] Comment: anti-HCV 3.0 Immunoblot Assay [...] used. TEST INFORMATION: ??Hepatitis C Antibody, RIBA [facility] intends use of this assay for clinical diagnosis. This assay should not be used for blood donor screening, associated re-entry protocols, or for screening Human Cells, Tissues and Cellular and Tissue-Based Products (HCT/P). 03/11/2009 2:30 PM EST 03/11/2009 3:02 PM EST Vivi Stoo NP LAB HISTORICAL RESULTS Final Result [facility] [address] [place] [address] from Last 3 Months or Most Recently Relevant to Health Maintenance Insurance [facility] MEDICAID Care Teams Home Assessment Nurse Relationship Specialty Start Date End Date Roxie Richard NP [address] [place] [address] PCP - General 07/28/23
--- OUTSIDE RECORDS SUMMARY | 2024-06-07 08:49 | XMS_ITS | Data Portability ---
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 Pap co-testing done. Screening mammogram ordered. 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 Procedures None recorded. Surgeries None recorded. Imaging MAMMO, screening , digital, bilateral [address] [facility], [address] [facility], [place], [address], 05/25/2024 04:46:16 Medication Orders ondansetr on HCl 4 mg tablet 2024 025 [facility], [address] [place], [address], 04/17/2024 19:54:24 hydrocodo ne 5 mg-acetam inophen 325 mg tablet 2024 025 [facility], [address] [place], [address], 04/17/2024 19:54:25 acetamino phen 500 mg tablet 2024 025 [facility], [address] [place], [address], 04/17/2024 19:54:23 ibuprofen 800 mg tablet 2024 025 [facility], [address] [place], [address], 04/17/2024 19:54:24 ibuprofen 800 mg tablet 2023 024 [facility], [address] [place], [address], 10/28/2023 15:09:54 acetamino phen 500 mg tablet 2023 024 [facility], [address] [place], [address], 10/28/2023 15:09:53 hydrocodo ne 5 mg-acetam inophen 325 mg tablet 2023 024 [facility], [address] [place], [address], 10/28/2023 15:09:55 ondansetr on HCl 4 mg tablet 2023 024 [facility], [address] [place], [address], 10/28/2023 15:09:54 Patient TargetsNo targets recorded. Patient Instructions Encounter Date Encounter Id Patient Instructions Last Modified By Organization Details Last Modified Time 10/25/2023 [id number] chronic pelvic pain: care instructions wbrazer Not available 10/28/2023 15:09:50 body mass index: care instructions wbrazer Not available 10/28/2023 15:09:49 learning about healthy weight wbrazer Not available 10/28/2023 15:09:49 04/12/2024 [id number] learning about breast cancer screening wbrazer Not [...] OR SEN PRESCOTT . Not Available [facility] ([facility]) [address] [facility], [place], [address], 04/16/2024 12:05:29 04/13/19 25 04/14/2024 IGP, APTIM A HPV, RFX 16/18 ,45 specimen adequacy: Commen t Satis facto ry for evalu ation . Not Available [facility] ([facility]) [address] [place], [address], 04/16/2024 12:05:29 04/13/1904/14/2024 IGP, APTIM A HPV, RFX 16/18 ,45 clinician provided ICD10: Varun hooper Z01.4 19 Not Available [facility] ([facility]) [address] [place], [address], 04/16/2024 12:05:29 04/13/19 25 04/14/2024 IGP, APTIM A HPV, RFX 16/18 ,45 performed by: Varun Cano, Vishal hooper (ASCP ) Not Available [facility] ([facility]) [address] [place], [address], 04/16/2024 12:05:29 04/13/1904/14/2024 IGP, APTIM A HPV, RFX 16/18 ,45 . . Not Available [facility] ([facility]) [address] [place], [address], 04/16/2024 12:05:29 04/13/1904/14/2024 IGP, APTIM A HPV, [...] ts do occur . Not Available [facility] ([facility]) [address] [place], [address], 04/16/2024 12:05:29 04/13/19 25 04/14/2024 IGP, APTIM A HPV, RFX 16/18 ,45 test methodology: Commen t This liqui d based ThinP rep(R ) pap test was dilip davis with the use of an image guide narinder hagan Not Available [facility] ([facility]) [address] [place], [address], 04/16/2024 12:05:29 04/13/1904/16/2024 IGP, APTIM A HPV, RFX 16/18 ,45 HPV aptima Negati ve negati ve This nucle ic acid ampli ficat ion test detec ts fourt een high- risk HPV types (16,1 8,31, 33,35 ,39,4 5,51, 52,56 ,58,5 9,66, 68) witho ut diffe renti ation . Not Available [facility] ([facility]) [address] [place], [address], 04/16/2024 12:05:29 04/13/1904/16/2024 IGP, APTIM A HPV, RFX 16/18 ,45 HPV genotype reflex Commen t Crite whit not met, HPV Genot ype not perfo rmed. Not Available [facility] ([facility]) [address] [place], [address], 04/16/2024 12:05:29 Result Notes None recorded. Procedures Surgical History Date Name Laterality Status Provider Name and Address Organization Details Recorded Time Dilation and Curettage completed Taina Blandon [facility] 10/25/2023 14:16:14 Endometrial Ablation completed Taina Blandon [facility] 10/25/2023 14:16:14 Gallbladder Surgery completed Tainaeri Blandon MA [facility] 10/25/2023 14:16:14 appendectomy completed Tainaeri Blandon [facility] 10/25/2023 14:16:14 Section completed Tainaeri Blandon MA [facility] 10/25/2023 14:16:14 Imaging Results None recorded. Procedure Notes None recorded. Medical Equipment None Reported. Allergies Allergen ID Allergen Name Allergen Category Reaction Reaction Severity Criticality Documentation Date Start Date Code Code System Note Provider Name and Address Organization Details Recorded Time 695074 morphine medicatio n anaphylax is Not available Not available 10/25/2023 7052 RxNorm [facility] 4 14:16:13 359306 POLLEN EXTRACTS environme nt,medica tion other Not available Not available 10/25/2023 38664 6 RxNorm [facility] 4 14:16:13 [...] Updated DateTime 10/25/2023 157.48 cm 32.6 kg/m2 69313.24 g 149 mm[Hg] 90 mm[Hg] [facility] 14:21:25 Date Recorded Body height Body mass index (BMI) Body weight Systolic blood pressure Diastolic blood pressure Provider Name and Address Organization Details Last Updated DateTime 04/12/2024 157.48 cm 33.5 kg/m2 68503.5 g 132 mm[Hg] 86 mm[Hg] Taina [facility]bre[facility] 14:41:03 Social History Question Answer Notes LastModified by Organizat ion Details LastModified Time Tobacco Smoking Status Current Some Day Smoker ANA [facility] 10/25/2023 14:16:14 Do You Have An [...] Anxious, Or Unable To Sleep At Night)? [id number] Information not available 10/25/2023 Do You Use [...] SNOMED-CT Code Diagnosis ICD10 Code Diagnosis Note [id number] Venancio Zaragoza MD [facility] [address] [address] 10/25/2023 13:53:47 10/25/2023 15:16:27 History of endometriosis [id number] 0977704 Z87.42 Chronic pe lvic pain of female 049786383 R10.2 Body mass index 30+ - obesity 575558842 Z68.32 [id number] Venancio Zaragoza MD [facility] [address] [facility] [address] [facility] [place] [address] 04/12/2024 14:02:14 04/12/2024 15:15:39 Routine gynecologic examination done 5270217394 9101 Z01.419 Screening for malignant neoplasm of breast 557762432 Z12.39 Chronic pe lvic pain of female 736778285 R10.2 Body mass index 30+ - obesity 318393787 Z68.33 Health Concerns Section Related Observation LastModified by Organization Detai ls LastModified Time None Recorded Concern Status LastModified by Organization Details LastModified Time None Recorded Advance Directives Directive Y: Payers Encounter Date Sequence Insurance Name Policy Number Policy Gatson Covered Member ID Gaston Member ID Guarantor Name 10/25/2023 1 [facility] [employer] [facility] [id number] Laura A Stuart [id number] 1 Laura Stuart 04/12/2024 1 [facility] [id number] Laura A Stuart [id number] Laura Stuart Notes Date Note Type [...] D&C curettings noted inactive endometrium with chronic endometritis.Coreen t used depo provera through 2022, stopped due to desire for fertility. Menses overall normal, regular, but painful. 10 days of bleeding. Menses: > > > 08/16 -22. Uses motrin throughout, supplemented with acetaminophen-hydro codone and ondansetron. Would consider hysterectomy in future after fertility.Also experiences painful bowel movements.Medical history also includes fibromyalgia and spine issues due to 2 bulging disks. Was involved in pain clinic previously, but discontinued, felt was ineffective. Venancio Zaragoza MD [address] [place] [address], [phone], [facility] 10/28/2023 15:26:51 04/12/2024 text/html Patient presents [...] for screening mammogram. Venancio Zaragoza MD [address] [place], [address], [facility] 04/17/2024 19:54:39 OBGyn Episode No OBEpisode recorded.
--- OUTSIDE RECORDS SUMMARY | 2024-06-07 08:49 | XMS_ITS | Clinical Summary ---
Author Organization [facility] Address [address] [place] [address] Care Team Providers Care Head Of Maintenance Name Role Phone Roxie Richard LJ Primary Care Provider [phone] Allergies Active Allergy Reactions Criticality Noted Date [...] Daily Amount: 20 mg 12 tablet 2024 Discontinued ondansetron (ZOFRAN ODT) 4 mg disintegrating tablet Dissolve 1 tablet (4 mg total) in the mouth every 8 hours as needed for nausea or vomiting. 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/15/2009 Fibromyalgia 01/15/2009 Encounters Date Type Department Care Team Description 06/04/2024 1:28 PM EDT - 06/04/2024 7:23 PM EDT Emergency [facility] Emergency Department [address] [place] [address] Aramis Crain MD Proctitis (Primary Dx) Discharge Disposition: Home or Self Care () from Last 3 Months Immunizations Immunization Administration Dates Next Due INFLUENZA, [...] 06/04/2024 12:45 PM EDT Plan of Treatment Health Maintenance Due Date [...] Tdap) 05/14/2020 05/14/2010 Mammogram 2022 COVID-19 Vaccine (1 - 2023- season) 2023 Alcohol/Substance Use Screening 02/09/2024 Depression Screening and Follow-Up 02/09/2024 Social Drivers of Health Kimberlyn ual Screening 02/09/2024 RSV Vaccine (60+ years old a nd patients) (1 - 1-dose 75+ series) 2057 Hepatitis C Screening Completed 03/11/2009 , 01/28/2009, 12/05/2008 Influenza Vaccine Completed 10/28/2023, , 12/23/2007 Procedures * Due to [employer] law, this organization might not be sharing [...] Health Maintenance Results * Due to [employer] law, this organization might not be sharing [...] obtain the completed interpretation. ? Workstation ID: [id number] Up-to-date CT equipment and radiation dose reduction [...] AND SOFT TISSUES: Unremarkable. Resulting Agency Comment [id number] Procedure Note Anish Chaney MD - 06/04/2024 [...] possible to obtain thecompleted interpretation. Workstation ID: [id number] Up-to-date CT equipment and radiation dose reduction techniques wereemployed. CTDIvol: 14.6 mGy. DLP: 654 mGy-cm. us Aramis Crain MD [place] [facility] PROCEDURES Final Result * (ABNORMAL) Microscopic Urinalysis Only (06/04/2024 5:02 PM EDT) RBC, Urine 0-2 None Seen, 0-2 /HPF 06/04/2024 5:57 PM EDT [facility] WBC, Urine 0-2 None Seen, 0-2 /HPF 06/04/2024 5:57 PM EDT [facility] Squamous Epithelial Cells, Urine 0-2 /HPF 06/04/2024 5:57 PM EDT [facility] Bacteria, Urine Small(A) None Seen /HPF 06/04/2024 5:57 PM EDT [facility] Urine Urine specimen collection, clean catch / Unknown Non-Blood Collection / Unknown 06/04/2024 5:02 PM EDT 06/04/2024 5:34 PM EDT us Aramis Crain MD LAB URINE ORDERABLES Final Res ult [facility] [address] [place] [address], [place] [phone] * (ABNORMAL) Urinalysis W/Reflex to Microscopic & Culture (06/04/2024 5:02 PM EDT) Color, Urine Yellow Yellow 06/04/2024 5:34 PM EDT [facility] Clarity, Urine Clear Clear 06/04/2024 5:34 PM EDT [facility] Specific [place], Urine 1.025 1.005 - 1.030 06/04/2024 5:34 PM EDT [facility] pH, Urine 5.5 5.0 - 8.0 06/04/2024 5:34 PM EDT [facility] Protein, Urine Negative Negative mg/dL 06/04/2024 5:34 PM EDT [facility] Glucose, Urine Negative Negative mg/dL 06/04/2024 5:34 PM EDT [facility] Ketones, Urine 80(A) Negative mg/dL 06/04/2024 5:34 PM EDT [facility] Bilirubin, Urine Negative Negative 06/04/2024 5:34 PM EDT [facility] Blood, Urine Trace(A) Negative 06/04/2024 5:34 PM EDT [facility] Nitrite, Urine Negative Negative 06/04/2024 5:34 PM EDT [facility] Urobilinogen, Urine 1.0 0.2 - 1.0 E.U./dL 06/04/2024 5:34 PM EDT [facility] Leukocyte Esterase, Urine Negative Negative 06/04/2024 5:34 PM EDT [facility] Urine Urine specimen collection, clean catch / Unknown Non-Blood Collection / Unknown 06/04/2024 5:02 PM EDT 06/04/2024 5:26 PM EDT Narrative [facility] - 06/04/2024 5:34 PM EDT Some urinalysis results will not meet the criteria for reflex urine culture although certain urine values may be abnormal. ??Additional testing can be ordered by the provider if clinically warranted. Aramis Crain MD LAB URINE ORDERABLES Final Res ult Performing Organization Address [facility]/ZIP Co de Phone Number [facility] [address] [address], [place] [phone] * Lactic Acid (w/Repeat if >2) (06/04/2024 4:19 PM EDT) Lactic Acid 0.7 0.5 - 2.0 mmol/L 06/04/2024 5:11 PM EDT [facility] Blood Structure of peripheral vein / Unknown Venipuncture / Unknown 06/04/2024 4:19 PM EDT 06/04/2024 4:36 PM EDT Aramis Crain MD LAB BLOOD ORDERABLES Final Res ult Performing Organization Address City/[facility]/ZIP Co de Phone Number [facility] [address] [address], [place] [phone] * (ABNORMAL) CBC Auto Differential (06/04/2024 4:04 PM EDT) WBC 6.9 4.8 - 10.8 10*3/uL 06/04/2024 4:08 PM EDT [facility] RBC 4.40 4.20 - 5.40 10*6/uL 06/04/2024 4:08 PM EDT [facility] Hemoglobin 13.7 11.7 - 15.5 g/dL 06/04/2024 4:08 PM EDT [facility] Hematocrit 38.6 35.7 - 45.8 % 06/04/2024 4:08 PM EDT [facility] MCV 87.7 81.0 - 99.0 fL 06/04/2024 4:08 PM EDT [facility] MCH 31.1 26.0 - 34.0 pg 06/04/2024 4:08 PM EDT [facility] MCHC 35.5 31.0 - 36.0 g/dL 06/04/2024 4:08 PM EDT [facility] RDW 12.4 12.0 - 15.0 % 06/04/2024 4:08 PM EDT [facility] RDW Standard Deviation 39.7 36.4 - 46.3 fL 06/04/2024 4:08 PM EDT [facility] Platelets 339 140 - 440 10*3/uL 06/04/2024 4:08 PM EDT [facility] MPV 9.5 9.4 - 12.3 fL 06/04/2024 4:08 PM EDT [facility] Neutrophil % 64.6 50.0 - 75.0 % 06/04/2024 4:08 PM EDT [facility] Immature Grans % 0.3 0.0 - 0.9 % 06/04/2024 4:08 PM EDT [facility] Lymphocyte % 20.4 20.0 - 44.0 % 06/04/2024 4:08 PM EDT [facility] Monocyte % 11.1 0.0 - 14.0 % 06/04/2024 4:08 PM EDT [facility] Eosinophil % 3.2 0.0 - 5.0 % 06/04/2024 4:08 PM EDT [facility] Basophil % 0.4 0.0 - 2.0 % 06/04/2024 4:08 PM EDT [facility] Neutrophil # 4.47 1.80 - 7.70 10*3/uL 06/04/2024 4:08 PM EDT [facility] Immature Grans # <0.03 0.00 - 0.03 10*3/uL 06/04/2024 4:08 PM EDT [facility] Lymphocyte # 1.40 1.00 - 4.75 10*3/uL 06/04/2024 4:08 PM EDT [facility] Monocyte # 0.80(H) 0.00 - 0.60 10*3/uL 06/04/2024 4:08 PM EDT [facility] Eosinophil # 0.20 0.00 - 0.80 10*3/uL 06/04/2024 4:08 PM EDT [facility] Basophil # <0.03 0.00 - 0.20 10*3/uL 06/04/2024 4:08 PM EDT [facility] nRBC % 0.0 0 - 0 /100 WBCs 06/04/2024 4:08 PM EDT [facility] nRBC # <0.01 0.00 - 0.13 10*3/uL 06/04/2024 4:08 PM EDT [facility] Blood Structure of peripheral vein / Unknown Venipuncture / Unknown 06/04/2024 4:04 PM EDT 06/04/2024 4:04 PM EDT us Aramis Crain MD LAB BLOOD ORDERABLES Final Res ult [facility] [address] [facility] [address] [place] [address], * Lipase (06/04/2024 4:04 PM EDT) Lipase 27 13 - 60 U/L 06/04/2024 4:19 PM EDT [facility] Blood Structure of peripheral vein / Unknown Venipuncture / Unknown 06/04/2024 4:04 PM EDT 06/04/2024 4:04 PM EDT Aramis Crain MD LAB BLOOD ORDERABLES Final Res ult [facility] [address] [place] [address], [place] [phone] * Hepatic Function Panel (06/04/2024 4:04 PM EDT) Total Protein 7.2 6.6 - 8.7 g/dL 06/04/2024 4:19 PM EDT [facility] Albumin 4.7 3.5 - 5.0 g/dL 06/04/2024 4:19 PM EDT [facility] Globulin, Total 2.5 2.1 - 4.2 g/dL 06/04/2024 4:19 PM EDT [facility] Bilirubin, Total 0.4 0.2 - 1.2 mg/dL 06/04/2024 4:19 PM EDT [facility] Bilirubin, Direct 0.2 <=0.3 mg/dL 06/04/2024 4:19 PM EDT [facility] Alkaline Phosphatase 94 40 - 129 U/L 06/04/2024 4:19 PM EDT [facility] AST 26 0 - 33 U/L 06/04/2024 4:19 PM EDT [facility] ALT 27 <=33 U/L 06/04/2024 4:19 PM EDT [facility] Bilirubin, Indirect 0.20 <=0.70 mg/dL 06/04/2024 4:19 PM EDT [facility] A/G Ratio 1.9 1.5 - 3.0 06/04/2024 4:19 PM EDT [facility] Blood Structure of peripheral vein / Unknown Venipuncture / Unknown 06/04/2024 4:04 PM EDT 06/04/2024 4:04 PM EDT Aramis Crain MD LAB BLOOD ORDERABLES Final Res ult [facility] [address] [place] [address], * (ABNORMAL) BMP - Basic Metabolic Panel (06/04/2024 4:04 PM EDT) NA 139 136 - 145 mmol/L 06/04/2024 4:19 PM EDT [facility] K 3.8 3.5 - 5.1 mmol/L 06/04/2024 4:19 PM EDT [facility] Cl 107 98 - 109 mmol/L 06/04/2024 4:19 PM EDT [facility] CO2 19(L) 22 - 32 mmol/L 06/04/2024 4:19 PM EDT [facility] BUN 21(H) 6 - 20 mg/dL 06/04/2024 4:19 PM EDT [facility] Creatinine 0.55 0.50 - 1.12 mg/dL 06/04/2024 4:19 PM EDT [facility] Glucose 99 60 - 99 mg/dL 06/04/2024 4:19 PM EDT [facility] Calcium 9.1 8.4 - 10.4 mg/dL 06/04/2024 4:19 PM EDT [facility] Anion Gap 17 >=0 06/04/2024 4:19 PM EDT [facility] eGFR >90 >=60 mL/min/1. 73m2 06/04/2024 4:19 PM EDT [facility] Comment:The estimated glomer ular filtration rate [...] PM EDT 06/04/2024 4:04 PM EDT us Aarmis Crain MD LAB BLOOD ORDERABLES Final Res ult [facility] [address] [facility] [address] [place] [address], * Rapid COVID-19, FLU A, FLU B & RSV RNA PCR, Symptomatic (ED ONLY) (06/04/2024 2:16 PM EDT) Pathologist [facility] PCR, SARS CoV-2 RNA Not Detected Not Detected [facility] 06/04/2024 3:33 PM EDT [facility] Flu A RNA PCR Not Detected Not Detected [employer] 06/04/2024 3:33 PM EDT [facility] Flu B RNA PCR Not Detected Not Detected [employer] 06/04/2024 3:33 PM EDT [facility] RSV RNA PCR Not Detected Not Detected [employer] 06/04/2024 3:33 PM EDT [facility] Comment: Limitations: This RSV test is [...] PM EDT 06/04/2024 2:53 PM EDT Narrative [facility] - 06/04/2024 3:33 PM EDT Methodology: The [employer] GeneXpert CoV-2/Flu/RSV plus assay is For Use Under an Emergency Use Authorization (EUA) Only with [employer]. The CoV-2/Flu/RSV plus assay is a [...] FLUIDS AND STOOLS O RDERABLES Final Result [facility] [address] [facility] [address] [place] [address], * ECG 12 lead (06/04/2024 12:49 PM EDT) Pathologist [facility] Ventricular Rate EKG 96 BPM MUSE EKG Atrial Rate 98 BPM MUSE EKG FL Interval 129 ms MUSE EKG QRS Interval 86 ms MUSE EKG QT Interval 327 ms MUSE EKG QTC Interval 414 ms MUSE EKG P [place] 55 degrees MUSE EKG R [place] 47 degrees MUSE EKG T Wave [place] 51 degrees MUSE EKG 06/04/2024 12:4 9 PM EDT 06/05/2024 9:19 AM EDT Impressions MUSE EKG - 06/05/2024 9:19 AM EDT Sinus rhythm Probable anteroseptal infarct with residual ST elevation V1-V2 Confirmed by Vivi Padilla ([id number]) on 06/05/2024 9:19:07 AM Director Index Andrea ZULUAGA ECG ORDERABLES Final Resu lt [...] assay was used. TEST INFORMATION: ??Hepatitis C AntibodyVALERIE intends use of this assay for clinical diagnosis. This assay should not be used for blood donor screening, associated re-entry protocols, or for screening Human Cells, Tissues and Cellular and Tissue-Based Products (HCT/P). 03/11/2009 2:30 PM EST 03/11/2009 3:02 PM EST Vivi Soto [facility] HISTORICAL RESULTS Final Result Performing Organization Address City/State/[facility] Co de Phone Number [facility] [address] [place] [address] from Last 3 Months or Most Recently Relevant to Health Maintenance Insurance [facility] MEDICAID Care Teams Head Of Maintenance Relationship Specialty Start Date End Date Roxie Richard NP [address] [place] [address] PCP - General 07/28/23
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
--- NOTE | 2024-06-07 08:56 | MHC.OFFVIS ---
Vital Signs 06/07/24 09:01 Weight 177 lb BP 128/71 Blood Pressure Location Rt brachial Position Sitting Pulse 87 Intake Visit Reasons: pain/wound check Intake Note: Patient here c/o pain at hemorrhoidectomy site. Taking rx pain meds as directed. Went to the ER on Wednesday. Rx Augmentin for 5d. Surgery: hemorrhoidectomy x2 columns on 05-05-2024. Pharmacy Operations Coordinator Required: No Accompanied by: Self / Same As Patient Allergies ketorolac [From Toradol] Allergy (Severe, Verified 06/07/24 09:01) Anaphylaxis metoclopramide [From Reglan] Allergy (Severe, Verified 06/07/24 09:01) Jumpy morphine Allergy (Severe, Verified 06/07/24 09:01) Anaphylaxis HPI HPI pain/wound check: Details: She is here for a follow-up after hemorrhoidectomy last 05/05/2024 She says that she still has pain with bowel movements. She denies any bleeding She says that she went to the ER [facility] 5 days ago because she felt dizzy and weak and she was told she had ?proctitis . She says she was told she had an infection and she was given antibiotics . She denies any fever. [facility] Medical History (Updated 05/03/24 @ 13:10 by Amalia Poole RN) Exercise-induced asthma Menstrual pain External hemorrhoids OCD (obsessive compulsive disorder) ADHD (attention deficit hyperactivity disorder) PTSD (post-traumatic stress disorder) Depression Anxiety Hemorrhoids that prolapse with straining and require manual replacement back inside anal canal Endometriosis Surgical History (Updated 05/03/24 @ 13:06 by Amalia Poole RN) Hx of laparoscopy Hx of cholecystectomy Hx of appendectomy History of excision of pilonidal cyst H/O section Family History Maternal Grandmother CVA (cerebral vascular accident) Paternal Grandmother Colon cancer Paternal Grandfather Myocardial infarction Maternal Grandfather Heart valve replaced Social History Household Members: Spouse and Children Are you a primary career placement specialist to a significant other at home: Yes (2 year old, has taken family leave to assist post-op) Do you presently have visiting nurse or other home services: No Alcohol intake: never Patient Tobacco Use Status: Current everyday Tobacco user Tobacco use type: Cigarette Cigarettes Per Day: 3 Years Smoked: 24 Review of Systems Const Denies chills and Denies fever(s) Card Denies chest pain GI Denies abdominal pain and Denies hematochezia Physical Exam Vital Signs: Last Vital Signs Pulse 87 06/07/24 09:01 BP 128/71 06/07/24 09:01 Const General: comfortable and no acute distress Resp Effort & Inspection: normal respiratory effort Cardio Rate: regular rate GI Other: Rectal exam shows no evidence of infection, appendectomy sites are well healed, no redness, no induration, no bleeding Assessment & Plan Assessment & Plan (1) Hemorrhoids that prolapse with straining and require manual replacement back inside anal canal: Code(s): K64.2 - Third degree hemorrhoids Category: Medical Plan: Status post hemorrhoidectomy She says she still needs refills on her hydrocodone. She was specific about this and says that we will need refills for a longer period of time. She says that she does not think that her postop pain is improving well. Objective exam shows no signs of infection and that hemorrhoidectomy sites are dry and well healed already I will refill her hydrocodone. I did have advised her to try to stretch this out and take less because of the risk of dependence especially as she is already on another narcotic for her endometriosis She is to continue with her fiber supplementation and stool softeners. She has continuing with the hot Sitz baths I told her that I would like to see her again in a month. I asked her multiple times if she had any concerns or any questions and she says she was comfortable with the plan. Medications: Refilled hydrocodone-acetaminophen 5-325 mg Partial Fill upon patient request. 1 tab PO Q4-6H PRN 10 tabs 0RF pain Coding Level of Care Code Global (52818) Diagnoses Hemorrhoids that prolapse with straining and require manual replacement back inside anal canal K64.2
[2024-06-07 09:01] VITALS: BP 128/71; PULSE 87
== END 2024-06-07 09:16 | disposition home or self-care (01) ==
LOC: HO.HGS 08:33
PROVIDERS: PCP Nurse Practitioner Family; Visit Provider Surgery
DX: K64.2 Third degree hemorrhoids (principal)
CPT/HCPCS: 99024

== ENCOUNTER → 2024-06-07 08:32 | Outpatient (BNVA) | payer OTHER, SELFPAY | PROVIDERS: PCP Nurse Practitioner Family; Visit Provider Surgery | DX: K64.2 Third degree hemorrhoids (principal) | CPT/HCPCS: 99212 ==

== ENCOUNTER 2024-07-05 08:57 | Outpatient (AMB) | payer OTHER, SELFPAY ==
--- NOTE | 2024-07-05 09:01 | MHC.OFFVIS ---
Vital Signs 07/05/24 09:06 Weight 180 lb BP 129/60 Blood Pressure Location Rt brachial Position Sitting Pulse 94 Intake Visit Reasons: 1 month pain/wound check Intake Note: Patient here for 1m follow up hemorrhoidectomy. Reports wound slowly healing. Patient c/o: some discomfort. Denies bleeding, oozing. Going to the bathroom multiple times in the am. 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 She has minimal pain. She says her bowel movements are much better as well. She says she takes Metamucil and Colace. PFSH Medical History Exercise-induced asthma Menstrual pain External hemorrhoids OCD (obsessive compulsive disorder) ADHD (attention deficit hyperactivity disorder) PTSD (post-traumatic stress disorder) Depression Anxiety Hemorrhoids that prolapse with straining and require manual replacement back inside anal canal Endometriosis Surgical History Hx of laparoscopy Hx of cholecystectomy Hx of appendectomy History of excision of pilonidal cyst H/O section Family History Maternal Grandmother CVA (cerebral vascular accident) Paternal Grandmother Colon cancer Paternal Grandfather Myocardial infarction Maternal Grandfather Heart valve replaced Social History Household Members: Spouse and Children Are you a primary healthcare consulting manager to a significant other at home: Yes (2 year old, has taken family leave to assist post-op) Do you presently have visiting nurse or other home services: No Alcohol intake: never Patient Tobacco Use Status: Current everyday Tobacco user Tobacco use type: Cigarette Cigarettes Per Day: 3 Years Smoked: 24 Review of Systems Const Denies chills and Denies fever(s) GI Denies abdominal pain and Denies hematochezia Physical Exam Vital Signs: Last Vital Signs Pulse 94 07/05/24 09:06 BP 129/60 07/05/24 09:06 Const General: comfortable and no acute distress GI Other: Hemorrhoidectomy site is well healed Assessment & Plan Assessment & Plan (1) Hemorrhoids that prolapse with straining and require manual replacement back inside anal canal: Code(s): K64.2 - Third degree hemorrhoids Category: Medical Plan: She feels much better. Her hemorrhoidectomy sites are well healed. I advised her to he had straining and constipation. I recommended continuing with Metamucil for better bowel habits She did ask me to may changes on her office Visit note for 06/07/2024. She says that the 1 line says that she had undergone appendectomy and she says this was a typo and should be changed to hemorrhoidectomy. She also says that she did not state that she will need refills for her pain meds for an extended period of time .She also says that her insurance company told her that not concerned about narcotic dependence for her as an issue for her refills. She can follow up with me on a p.r.n. basis. Coding Level of Care Code Global (31080) Diagnoses Hemorrhoids that prolapse with straining and require manual replacement back inside anal canal K64.2
[2024-07-05 09:06] VITALS: BP 129/60; PULSE 94
--- OUTSIDE RECORDS SUMMARY | 2024-07-05 09:21 | XMS_ITS | Referral Summary ---
Author Organization [facility] Address [address] [place] [address] Care Team Providers Care Supervisor Pipelines Name Role Phone Roxie Richard LJ Primary Care Provider [phone] Encounters Date Type Department Care Team Description 06/04/2024 1:28 PM EDT - 06/04/2024 7:23 PM EDT Emergency [facility] Emergency Department [address] [place] [address] Aramis Crain MD Proctitis (Primary Dx) Discharge [...] mg by mouth 3 times a day. 06/01/19 24 Active cyclobenzaprine (FLEXERIL) 10 mg tablet 10 mg 2 times a day as needed for muscle spasms. 06/15/19 24 Active no.167-folic acid-dha (One-A-Day ) 400 mcg- 25 mg tablet,chewable Chew and swallow by mouth. Active oxyCODONE-acetamin ophen (PERCOCET) 5-325 mg tablet Take 1 tablet by mouth 2 (two) times a day. 11/19/19 24 Active diclofenac (VOLTAREN) 50 mg EC tablet Take 1 tablet (50 mg total) by mouth 2 times a day. 60 tablet 1 12/08/19 24 Active HYDROcodone-acetam inophen (NORCO) 5-325 mg tablet Take 1 tablet by mouth every 4 hours as needed for pain. 01/10/20 24 Active clindamycin (CLEOCIN T) 1 % gel Apply 1 application. topically to the affected area 2 times a day. Active lidocaine (XYLOCAINE) 5% ointment Apply 6 inches topically to the affected area 4 times a day as needed for pain. 05/19/19 25 Active ondansetron (ZOFRAN ODT) 4 mg disintegrating tablet Dissolve 1 tablet (4 mg total) in the mouth every 8 hours as needed for nausea or vomiting. 12 tablet 06/05/19 25 Active docusate sodium (COLACE) 100 mg capsule Take 1 capsule (100 mg total) by mouth 2 times a day for 14 days. 28 capsule 06/05/19 25 Active oxyCODONE IR (ROXICODONE) 5 mg tablet Take 1 tablet (5 mg total) by mouth every 6 hours as needed for breakthrough pain for up to 5 days. Max Daily Amount: 20 mg 12 tablet 06/05/19 25 025 amoxicillin-clavul anate (AUGMENTIN) 875-125 mg tablet Take 1 tablet (875 mg total) by mouth 2 times a day for 7 days. 14 tablet 06/05/19 25 025 Active Problems Problem Noted Date Diagnosed Date [...] Not on file Procedures * Due to [place] state law, this organization might not be [...] to Health Maintenance Results * Due to [place] state law, this organization might not be [...] obtain the completed interpretation. ? Workstation ID: [id number] Up-to-date CT equipment and radiation dose reduction [...] AND SOFT TISSUES: Unremarkable. Resulting Agency Comment [id number] Procedure Note Anish Chaney MD - 06/04/2024 [...] possible to obtain thecompleted interpretation. Workstation ID: [id number] Up-to-date CT equipment and radiation dose reduction techniques wereemployed. CTDIvol: 14.6 mGy. DLP: 654 mGy-cm. Aramis Crain MD IM CT PROCEDURES Final Result * (ABNORMAL) Microscopic Urinalysis Only (06/04/2024 5:02 PM EDT) RBC, Urine 0-2 None Seen, 0-2 /HPF 06/04/2024 5:57 PM EDT [facility] WBC, Urine 0-2 None Seen, 0-2 /HPF 06/04/2024 5:57 PM EDT [facility] Squamous Epithelial Cells, Urine 0-2 /HPF 06/04/2024 5:57 PM EDT [facility] Bacteria, Urine Small(A) None Seen /HPF 06/04/2024 5:57 PM EDT [facility] Urine Urine specimen collection, clean catch / Unknown Non-Blood Collection / Unknown 06/04/2024 5:02 PM EDT 06/04/2024 5:34 PM EDT us Aramis Crain MD LAB URINE ORDERABLES Final Res ult [facility] [address] [facility] [address] [address], [place] [phone] * (ABNORMAL) Urinalysis W/Reflex to Microscopic & Culture (06/04/2024 5:02 PM EDT) Color, Urine Yellow Yellow 06/04/2024 5:34 PM EDT [facility] Clarity, Urine Clear Clear 06/04/2024 5:34 PM EDT [facility] Specific [place], Urine 1.025 1.005 - 1.030 06/04/2024 5:34 PM EDT [facility] pH, Urine 5.5 5.0 - 8.0 06/04/2024 5:34 PM EDT [facility] Protein, Urine Negative Negative mg/dL 06/04/2024 5:34 PM EDT [facility] Glucose, Urine Negative Negative mg/dL 06/04/2024 5:34 PM EDT [facility] Ketones, Urine 80(A) Negative mg/dL 06/04/2024 5:34 PM EDT [facility] Bilirubin, Urine Negative Negative 06/04/2024 5:34 PM EDT [facility] Blood, Urine Trace(A) Negative 06/04/2024 5:34 PM EDT [facility] Nitrite, Urine Negative Negative 06/04/2024 5:34 PM EDT [facility] Urobilinogen, Urine 1.0 0.2 - 1.0 E.U./dL 06/04/2024 5:34 PM EDT [facility] Leukocyte Esterase, Urine Negative Negative 06/04/2024 5:34 PM EDT [facility] Urine Urine specimen collection, clean catch / Unknown Non-Blood Collection / Unknown 06/04/2024 5:02 PM EDT 06/04/2024 5:26 PM EDT Narrative [facility] - 06/04/2024 5:34 PM EDT Some urinalysis results will not meet the criteria for reflex urine culture although certain urine values may be abnormal. ??Additional testing can be ordered by the provider if clinically warranted. us Aramis Crain MD LAB URINE ORDERABLES Final Res ult Performing Organization Address [facility] Co de Phone Number [facility] [address] [address], [place] [phone] * Lactic Acid (w/Repeat if >2) (06/04/2024 4:19 PM EDT) Lactic Acid 0.7 0.5 - 2.0 mmol/L 06/04/2024 5:11 PM EDT [facility] Blood Structure of peripheral vein / Unknown Venipuncture / Unknown 06/04/2024 4:19 PM EDT 06/04/2024 4:36 PM EDT us Aramis Crain MD LAB BLOOD ORDERABLES Final Res ult Performing Organization Address [facility] Co de Phone Number [facility] [address] [address], [place] [phone] * (ABNORMAL) CBC Auto Differential (06/04/2024 4:04 PM EDT) WBC 6.9 4.8 - 10.8 10*3/uL 06/04/2024 4:08 PM EDT [facility] RBC 4.40 4.20 - 5.40 10*6/uL 06/04/2024 4:08 PM EDT [facility] Hemoglobin 13.7 11.7 - 15.5 g/dL 06/04/2024 4:08 PM EDT [facility] Hematocrit 38.6 35.7 - 45.8 % 06/04/2024 4:08 PM EDT [facility] MCV 87.7 81.0 - 99.0 fL 06/04/2024 4:08 PM EDT [facility] MCH 31.1 26.0 - 34.0 pg 06/04/2024 4:08 PM EDT [facility] MCHC 35.5 31.0 - 36.0 g/dL 06/04/2024 4:08 PM EDT [facility] RDW 12.4 12.0 - 15.0 % 06/04/2024 4:08 PM EDT [facility] RDW Standard Deviation 39.7 36.4 - 46.3 fL 06/04/2024 4:08 PM EDT [facility] Platelets 339 140 - 440 10*3/uL 06/04/2024 4:08 PM EDT [facility] MPV 9.5 9.4 - 12.3 fL 06/04/2024 4:08 PM EDT [facility] Neutrophil % 64.6 50.0 - 75.0 % 06/04/2024 4:08 PM EDT [facility] Immature Grans % 0.3 0.0 - 0.9 % 06/04/2024 4:08 PM EDT [facility] Lymphocyte % 20.4 20.0 - 44.0 % 06/04/2024 4:08 PM EDT [facility] Monocyte % 11.1 0.0 - 14.0 % 06/04/2024 4:08 PM EDT [facility] Eosinophil % 3.2 0.0 - 5.0 % 06/04/2024 4:08 PM EDT [facility] Basophil % 0.4 0.0 - 2.0 % 06/04/2024 4:08 PM EDT [facility] Neutrophil # 4.47 1.80 - 7.70 10*3/uL 06/04/2024 4:08 PM EDT [facility] Immature Grans # <0.03 0.00 - 0.03 10*3/uL 06/04/2024 4:08 PM EDT [facility] Lymphocyte # 1.40 1.00 - 4.75 10*3/uL 06/04/2024 4:08 PM EDT [facility] Monocyte # 0.80(H) 0.00 - 0.60 10*3/uL 06/04/2024 4:08 PM EDT [facility] Eosinophil # 0.20 0.00 - 0.80 10*3/uL 06/04/2024 4:08 PM EDT [facility] Basophil # <0.03 0.00 - 0.20 10*3/uL 06/04/2024 4:08 PM EDT [facility] nRBC % 0.0 0 - 0 /100 WBCs 06/04/2024 4:08 PM EDT [facility] nRBC # <0.01 0.00 - 0.13 10*3/uL 06/04/2024 4:08 PM EDT [facility] Blood Structure of peripheral vein / Unknown Venipuncture / Unknown 06/04/2024 4:04 PM EDT 06/04/2024 4:04 PM EDT us Aramis Crain MD LAB BLOOD ORDERABLES Final Res ult Performing Organization Address City/[facility]/ZIP Co de Phone Number [facility] [address] [address], [place] [phone] * Lipase (06/04/2024 4:04 PM EDT) Pathologist [facility] Lipase 27 13 - 60 U/L 06/04/2024 4:19 PM EDT [facility] Blood Structure of peripheral vein / Unknown Venipuncture / Unknown 06/04/2024 4:04 PM EDT 06/04/2024 4:04 PM EDT us Aramis Crain MD LAB BLOOD ORDERABLES Final Res ult Performing Organization Address [facility]/ZIP Co de Phone Number [facility] [address] [address], [place] [phone] * Hepatic Function Panel (06/04/2024 4:04 PM EDT) Pathologist [facility] Total Protein 7.2 6.6 - 8.7 g/dL 06/04/2024 4:19 PM EDT [facility] Albumin 4.7 3.5 - 5.0 g/dL 06/04/2024 4:19 PM EDT [facility] Globulin, Total 2.5 2.1 - 4.2 g/dL 06/04/2024 4:19 PM EDT [facility] Bilirubin, Total 0.4 0.2 - 1.2 mg/dL 06/04/2024 4:19 PM EDT [facility] Bilirubin, Direct 0.2 <=0.3 mg/dL 06/04/2024 4:19 PM EDT [facility] Alkaline Phosphatase 94 40 - 129 U/L 06/04/2024 4:19 PM EDT [facility] AST 26 0 - 33 U/L 06/04/2024 4:19 PM EDT [facility] ALT 27 <=33 U/L 06/04/2024 4:19 PM EDT [facility] Bilirubin, Indirect 0.20 <=0.70 mg/dL 06/04/2024 4:19 PM EDT [facility] A/G Ratio 1.9 1.5 - 3.0 06/04/2024 4:19 PM EDT [facility] Blood Structure of peripheral vein / Unknown Venipuncture / Unknown 06/04/2024 4:04 PM EDT 06/04/2024 4:04 PM EDT us Aramis Crain MD LAB BLOOD ORDERABLES Final Res ult [facility] [address] [place] [address], [place] [phone] * (ABNORMAL) BMP - Basic Metabolic Panel (06/04/2024 4:04 PM EDT) NA 139 136 - 145 mmol/L 06/04/2024 4:19 PM EDT [facility] K 3.8 3.5 - 5.1 mmol/L 06/04/2024 4:19 PM EDT [facility] Cl 107 98 - 109 mmol/L 06/04/2024 4:19 PM EDT [facility] CO2 19(L) 22 - 32 mmol/L 06/04/2024 4:19 PM EDT [facility] BUN 21(H) 6 - 20 mg/dL 06/04/2024 4:19 PM EDT [facility] Creatinine 0.55 0.50 - 1.12 mg/dL 06/04/2024 4:19 PM EDT [facility] Glucose 99 60 - 99 mg/dL 06/04/2024 4:19 PM EDT [facility] Calcium 9.1 8.4 - 10.4 mg/dL 06/04/2024 4:19 PM EDT [facility] Anion Gap 17 >=0 06/04/2024 4:19 PM EDT [facility] eGFR >90 >=60 mL/min/1. 73m2 06/04/2024 4:19 PM EDT [facility] Comment:The estimated glomer ular filtration rate (eGFR) is calculated using a new formula developed by the NKF-ASN task force to eliminate race-based correction factors. The new formula uses serum/plasma creatinine, age, and gender to determine eGFR. A value below 60mls/min might indicate kidney disease and will be flagged. For additional information, see Burgos et al, Am J Kidney Dis. 2021;79(2):268- 288, A Unifying Approach for GFR estimation: Recommendations of the NKF-ASN Task Force on Reassessing the Inclusion of Race in Diagnosing Kidney Disease . Blood Structure of peripheral vein / Unknown Venipuncture / Unknown 06/04/2024 4:04 PM EDT 06/04/2024 4:04 PM EDT us Aramis Crain MD LAB BLOOD ORDERABLES Final Res ult [facility] [address] [place] [address], [place] [phone] * Rapid COVID-19, FLU A, FLU B & RSV RNA PCR, Symptomatic (ED ONLY) (06/04/2024 2:16 PM EDT) Pathologist [facility] PCR, SARS CoV-2 RNA Not Detected Not Detected CEPHEID GENEXPERT 06/04/2024 3:33 PM EDT [facility] Flu A RNA PCR Not Detected Not Detected CEPHEID GENEXPERT 06/04/2024 3:33 PM EDT [facility] Flu B RNA PCR Not Detected Not Detected CEPHEID GENEXPERT 06/04/2024 3:33 PM EDT [facility] RSV RNA PCR Not Detected Not Detected CEPHEID GENEXPERT 06/04/2024 3:33 PM EDT [facility] Comment: Limitations: This RSV test [...] 2:16 PM EDT 06/04/2024 2:53 PM EDT [facility] - 06/04/2024 3:33 PM EDT Methodology: The [employer] GeneXpert CoV-2/Flu/RSV plus assay is For Use Under an Emergency Use Authorization (EUA) Only with [email or web address]. The CoV-2/Flu/RSV plus assay is a [...] FLUIDS AND STOOLS O RDERABLES Final Result Performing Organization Address [facility] Co de Phone Number [facility] [address] [place] [address], [place] [phone] * ECG 12 lead (06/04/2024 12:49 PM EDT) Ventricular Rate EKG 96 BPM MUSE EKG Atrial Rate 98 BPM MUSE EKG MI Interval 129 ms MUSE EKG QRS Interval 86 ms MUSE EKG QT Interval 327 ms MUSE EKG QTC Interval 414 ms MUSE EKG P [place] 55 degrees MUSE EKG R [place] 47 degrees MUSE EKG T Wave [place] 51 degrees MUSE EKG 06/04/2024 12:4 9 PM EDT 06/05/2024 9:19 AM EDT Impressions MUSE EKG - 06/05/2024 9:19 AM EDT Sinus rhythm Probable anteroseptal infarct with residual ST elevation V1-V2 Confirmed by Vivi Padilla ([id number]) on 06/05/2024 9:19:07 AM [employer] Andrea ZULUAGA ECG ORDERABLES Final Resu lt Performing Organization Address [facility] de Phone Number MUSE EKG * HEPATITIS C ANTIBODY, CONVERSION [...] Soto NP LAB HISTORICAL RESULTS Final Result [facility] [address] [place] [address] from Last 3 Months or Most Recently Relevant to Health Maintenance Insurance [facility] MEDICAID Care Teams Supervisor Pipelines Relationship Specialty Start Date End Date Roxie Richard NP [address] [place] [address] PCP - General 07/28/23
== END 2024-07-05 09:22 | disposition home or self-care (01) ==
LOC: HO.HGS 08:57
PROVIDERS: PCP Nurse Practitioner Family; Visit Provider Surgery
DX: K64.2 Third degree hemorrhoids (principal)
CPT/HCPCS: 99024

== ENCOUNTER → 2024-07-05 08:57 | Outpatient (BNVA) | payer OTHER, SELFPAY | PROVIDERS: PCP Nurse Practitioner Family; Visit Provider Surgery | DX: K64.2 Third degree hemorrhoids (principal) | CPT/HCPCS: 99212 ==